=== PATIENT | female | born 1975 | race Two or more races ===

== ENCOUNTER 2025-04-28 07:09 | Inpatient (IN) | payer BC, OTHER ==
[~2025-04-28] VITALS: Ht 180.3 cm; Wt 65.9 kg
--- NOTE | 2025-04-28 07:27 | ECG ---
[facility] Test Date: 2025-04-28 Test Time: 07:21:14 Pat Name: RENATA VARGAS Department: [facility] ED Patient ID: [id number] Room: 0288 Gender: F Hide Spreader: JASMINE : 1975 Requested By: KARYN OLIVARES Order Number: [id number] Reading MD: Nicolas Ashley Measurements Intervals Nicholson Rate: 65 P: 33 AL: 130 QRS: 21 QRSD: 90 T: 32 QT: 417 QTc: 434 Interpretive Statements Sinus rhythm Low voltage, extremity leads Electronically Signed On 05-01-2025 20:30:12 PDT by Nicolas Ashley Please click the below link to view image of tracing.
--- NOTE | 2025-04-28 07:32 | ED.PDOC ---
GI ASSESSMENT HPI Comments This is a 50 year old female MARY presenting to the ED with chief complaint of abdominal pain. Patient reports that she has been experiencing upper abdominal pain with associated difficulty urinating for the past month. Patient relays that she has had multiple episodes of burning abdominal pain and she is currently placed on antibiotics from an urgent care for possible kidney infection as she was told her kidneys were having issues. Patient denies any N/V/D, fever, chills, dysuria, hematuria, or flank pain. Time Seen by MD: 07:29 Reviewed Notes: Nurses Notes, Accounting Professional Notes, Medications, Allergies Allergies: Coded Allergies: Ciprofloxacin (Verified Allergy, Unknown, 04/28/25) Codeine (Verified Allergy, Unknown, 04/28/25) Information Source: Patient, Emergency Med Personnel Mode of Arrival: EMS Timing: Days Duration: Since onset Prehospital treatment: None Quality: Aching Vomitus: None Stool: Normal Severity: Moderate Recent: None Recent Hx of: None Pain Location: Epigastric Modifying Factors: Nothing Associated sign and symptoms: Abdominal Pain Past Medical History PAST MEDICAL HISTORY: Denies Surgical History: Denies all surgeries REALTIME REPORTER History: No Pertinent REALTIME REPORTER History Family History Family History: Reviewed,noncontributory to illness Social History Smoker: Non-Smoker Alcohol: Denies ETOH Use Drugs: Denies Drug Use Lives In: Home Constitutional: denies: chills, diaphoresis, fatigue, fever, malaise, sweats, weakness, others EENTM: denies: blurred vision, double vision, ear bleeding, ear discharge, ear drainage, ear pain, ear ringing, eye pain, eye redness, hearing loss, mouth pain, mouth swelling, nasal discharge, nose bleeding, nose congestion, nose pain, photophobia, tearing, throat pain, throat swelling, voice changes, others Respiratory: denies: cough, hemoptysis, orthopnea, SOB at rest, shortness of breath, SOB with excertion, stridor, wheezing, others Cardiovascular: denies: chest pain, dizzy spells, diaphoresis, Dyspnea on exertion, edema, irregular heart beat, left arm pain, lightheadedness, palpitations, PND, syncope, others Gastrointestinal: reports: abdominal pain; denies: abdomen distended, blood streaked bowels, constipated, diarrhea, dysphagia, difficulty swallowing, hematemesis, melena, nausea, poor appetite, poor fluid intake, rectal bleeding, rectal pain, vomiting, others Genitourinary: reports: others (Difficulty urinating); denies: abnormal vagina bleeding, burning, dyspareunia, dysuria, flank pain, frequency, hematuria, incontinence, pain, , vagina discharge, urgency Neurological: denies: dizziness, fainting, headache, left sided numbness, left sided weakness, numbness, paresthesia, pre-existing deficit, right sided numbness, right sided weakness, seizure, speech problems, tingling, tremors, weakness, others Musculoskeletal: denies: back pain, gout, joint pain, joint swelling, muscle pain, muscle stiffness, neck pain, others Integumetry: denies: bruises, change in color, change in hair/nails, dryness, laceration, lesions, lumps, rash, wounds, others Allergic/Immunocompromised: denies: Difficulty Healing, Frequent Infections, Hives, Itching, others Hematologic/Lymphatic: denies: anemia, blood clots, easy bleeding, easy bruising, swollen glands, others Endocrine: denies: excessive hunger, excessive sweating, excessive thirst, excessive urination, flushing, intolerance to cold, intolerance to heat, unexplained weight gain, unexplained weight loss, others Psychiatric: denies: anxiety, bipolar disorder, depression, hopeless, panic disorder, schizophrenia, sleepless, suicidal, others All Other Systems: Reviewed and Negative Physical Exam General Appearance: No Apparent Distress, Normal HEENT: Normal ENT Inspection, Pharynx Normal, TMs Normal Neck: Full Range of Motion, Non-Tender, Normal, Normal Inspection Respiratory: Chest Non-Tender, Lungs Clear, No Accessory Muscle Use, No Respiratory Distress, Normal Breath Sounds Cardiovascular: No Edema, No JVD, No Murmur, No Gallop, Normal Peripheral Pulses, Regular Rate/Rhythm Breast Exam: Deferred Gastrointestinal: No Organomegaly, No Pulsatile Mass, Normal Bowel Sounds, Soft, Tenderness (Diffuse abdominal tenderness) Genitalia: Deferred Pelvic: Deferred Rectal: Deferred Extremities: No calf tenderness, Normal capillary refill, Normal inspection, Normal range of motion, Non-tender, No pedal edema Musculoskeletal : Apperance: Normal Neurologic: Alert, jewelry estimator II-XII nml as Tested, No Motor Deficits, Normal Affect, Normal Mood, No Sensory Deficits Cerebellar Function: Normal Reflexes: Normal Skin: Dry, Normal Color, Warm Lymphatic: No Adenopathy Was a procedure done? Was a procedure done?: No GI differential Dx Differential Diagnosis: Gastroenteritis, GI hemorrhage, UTI, Dehydration X-Ray, Labs, Meds, VS Vital Signs Date Time Temp Pulse Resp B/P (MAP) Pulse Ox O2 Delivery O2 Flow Rate FiO2 04/28/25 08:30 50 15 108/59 04/28/25 08:00 57 16 104/64 04/28/25 07:33 98.8 57 16 104/64 (77) 97 98.8 04/28/25 07:21 65 04/28/25 07:17 98.4 59 18 109/69 98 98.4 Lab Test 04/28/25 09:30 04/28/25 07:56 Range/Units Urine Color Colorless Yellow Urine Clarity Turbid H Clear Urine pH 7.5 5.0-9.0 Urine Specific [place] 1.016 1.001-1.035 Urine Protein Normal Negative Urine Ketones Negative Negative Urine Blood Normal Negative /uL Urine Nitrite Negative Negative Urine Bilirubin Negative Negative Urine Urobilinogen Normal Negative mg/dL Urine Leukocyte Esterase 3+ Negative /uL Urine Glucose Normal Normal mg/dL White Blood Count 3.7 L 4.4-10.8 10^3/uL Red Blood Count 3.80 L 4.0-5.20 10^6/uL Hemoglobin 12.2 12.2-16.2 g/dL Hematocrit 35.9 L 36.0-46.0 % Mean Corpuscular Volume 94.7 80.0-100.0 fL Mean Corpuscular Hemoglobin 32.2 H 28.0-32.0 pg Mean Corpuscular Hemoglobin Concent 34.0 32.0-36.0 g/dL Red Cell Distribution Width 12.7 11.8-14.3 % Platelet Count 148 140-450 10^3/uL Mean Platelet Volume 8.1 6.9-10.8 fL Neutrophils (%) (Auto) 61.2 37.0-80.0 % Lymphocytes (%) (Auto) 27.9 10.0-50.0 % Monocytes (%) (Auto) 9.3 0.0-12.0 % Eosinophils (%) (Auto) 1.1 0.0-7.0 % Basophils (%) (Auto) 0.5 0.0-2.0 % Neutrophils # (Auto) 2.3 1.6-8.6 10 ^3/uL Lymphocytes # (Auto) 1.0 0.4-5.4 10 ^3/uL Monocytes # (Auto) 0.3 0-1.3 10 ^3/uL Eosinophils # (Auto) 0 0-0.8 10 ^3/uL Basophils # (Auto) 0 0-0.2 10 ^3/uL Nucleated Red Blood Cells 0.0 % Sodium Level 145 136-145 mmol/L Potassium Level 4.3 3.5-5.1 mmol/L Chloride Level 109 H 98-107 mmol/L Carbon Dioxide Level 28 20-31 mmol/L Anion Gap 8 5-15 Blood Urea Nitrogen 13 9-23 mg/dL Creatinine 0.39 L 0.550-1.02 mg/dL Glomerular Filtration Rate Calc 120 >90 mL/min BUN/Creatinine Ratio 33.3 H 10.0-20.0 Serum Glucose 86 74-106 mg/dL Lactic Acid Level 0.8 0.4-2.0 mmol/L Calcium Level 8.6 L 8.7-10.4 mg/dL Total Bilirubin 0.5 0.2-1.0 mg/dL Aspartate Amino Transferase (AST) 12 L 13-40 U/L Alanine Aminotransferase (ALT) < 9 7-40 U/L Alkaline Phosphatase 39 L 46-116 U/L Total Protein 6.3 5.7-8.2 g/dL Albumin 3.8 3.2-4.8 g/dL Current Medications Medications (Trade) Dose Ordered Sig/Moisés Route Start Time Stop Time Status Last Admin Sodium Chloride 1,000 ml @ 1,000 mls/hr Q1H ONCE IV 04/28/25 07:30 04/28/25 08:29 DC 04/28/25 08:01 Ondansetron HCl (Zofran) 4 mg ONCE ONCE IV 04/28/25 07:30 04/28/25 07:33 DC 04/28/25 07:59 Morphine Sulfate 4 mg ONCE ONCE IV 04/28/25 07:30 04/28/25 07:33 DC 04/28/25 08:00 [facility] [id number] [place] [id number] Ph: [phone] DIAGNOSTIC IMAGING Diagnostic Imaging Report : [id number] Signed PATIENT: RENATA VARGAS ACCT: [id number] UNIT: [id number] : 1975 LOC: ER ROOM / BED: / AGE / SEX: 50 / F ADM STATUS: REG ER SERVICE 7 ORDERING PHYSICIAN: KARYN PINON MD PROCEDURE(s): CXRP - CHEST PORTABLE REASON: abdominal pain ORDER NUMBER(s): [id number], ACCESSION NUMBER(s): [id number] CHEST RADIOGRAPH Indication: abdominal pain Technique: Single frontal view of the chest was obtained COMPARISON: None FINDINGS: Lines and Tubes: None Lungs: Clear Pleura: No effusion. No pneumothorax. Cardiomediastinal contours: Unremarkable Bones: Unremarkable IMPRESSION: No acute disease. ATED BY: FILIBERTO DIXON MD DICTATED DATE/TIME: 04/28/25831 SIGNED BY: FILIBERTO DIXON MD SIGNED DATE/TIME: 04/28/25831 CC: Images Reviewed?: Images reviewed and evaluated by me Time of 1ST Reevaluation: 08:28 Reevaluation 1ST: Unchanged Patient Education/Counseling: Diagnosis, Treatment Family Education/Counseling: No Family Present SEPSIS Sepsis Screen Physician Orders Chest Portable (04/28/25 07:28) Blood Culture (04/28/25 07:28) Urine Bacterial Culture (04/28/25 07:28) Ct Ab Pel With Iv Con Only (04/28/25 08:51) Vital Signs Date Time Temp Pulse Resp B/P (MAP) Pulse Ox O2 Delivery O2 Flow Rate FiO2 04/28/25 08:30 50 15 108/59 04/28/25 08:00 57 16 104/64 04/28/25 07:33 98.8 57 16 104/64 (77) 97 98.8 04/28/25 07:21 65 04/28/25 07:17 98.4 59 18 109/69 98 98.4 Laboratory Tests Test 04/28/25 07:56 Lactic Acid Level 0.8 mmol/L (0.4-2.0) White Blood Count 3.7 10^3/uL (4.4-10.8) L Medications Medications Dose Ordered Sig/Moisés Route Start Time Stop Time Status Last Admin Dose Admin Morphine Sulfate 4 mg ONCE ONCE IV 04/28/25 07:30 04/28/25 07:33 DC 04/28/25 08:00 Ondansetron HCl 4 mg ONCE ONCE IV 04/28/25 07:30 04/28/25 07:33 DC 04/28/25 07:59 Sodium Chloride 1,000 ml @ 1,000 mls/hr Q1H ONCE IV 04/28/25 07:30 04/28/25 08:29 DC 04/28/25 08:01 Departure 1 Departure Time of Disposition: 10:16 (Patient presented with abdominal pain that was concerning for possible appendicits, gastritis, cholecystitis, colitis, gastroenteritis, sbo, or orther possible surgical emergency. Data: 1. I ordered and reviewed the result of at least 3 labs including a CBC, BMP, and Urinalysis. 2. I independently interpreted the following tests: CT Abdomen and Pelvis is concerning for benign abdomen .Risk:This patient has a high risk of morbidity due to further diagnostic testing or treatment and may suffer from an acute abdominal process disorder. Workup reveals intractable abdominal pain and patient should be admitted for further workup. and possible expert consultation. ) Impression: Primary Impression: Intractable abdominal pain Additional Impression: Generalized weakness Disposition: ADMITTED INPATIENT Admit to: Med Surg Condition: Serious Critical Care Note Critical Care Time?: Yes Critical care comment: Intractable abdominal pain Authorized and Performed by: Karyn Pinon MD Total critical care time: Approximately 41 minutes Due to a high probability of clinically significant, life threatening deterioration, the patient required my highest level of preparedness to int ervene emergently and I personally spent this critical care time directly and personally managing the patient. This critical care time included obtaining a history; examining the patient; pulse oximetry; ordering and review of studies; arranging urgent treatment with development of a management plan; evaluation of patient's response to treatment; frequent reassessment; and, discussions with other providers. This critical care time was performed to assess and manage the high probability of imminent, life-threatening deterioration that could result in multi-organ failure. It was exclusive of separately billable procedures and treating other patients and teaching time. Please see my other sections and the rest of the note for further information on patient assessment and treatment. Stability Stability form required: No Heart Score Heart Score: Heart Score Response (Comments) Value History N/A 0 EKG N/A 0 Age N/A 0 Risk Factors N/A 0 Troponin N/A 0 Total 0 I personally scribed for KARYN PINON MD ([email or web address]) on 04/28/25 at 07:32. E lectronically submitted by [place] Fenton ([email or web address]). I personally scribed for KARYN PINON MD ([email or web address]) on 04/28/25 at 07:44. E lectronically submitted by [place] Fenton ([email or web address]). I personally scribed for KARYN PINON MD ([email or web address]) on 04/28/25 at 09:26. E lectronically submitted by [place] Fenton ([email or web address]). KARYN PINON MD Apr 28, 2025 07:32
[2025-04-28 07:33] VITALS: PULSE 57; RESP 16; O2SAT 97
[2025-04-28] MEDS: ONDANSETRON HCL 4 MG/2 ML VIAL IV ONE ×2 (07:59→13:01)
[2025-04-28] MEDS: MORPHINE SULFATE 4 MG/ML SYR/VIAL IV ONE ×2 (08:00→13:01)
[2025-04-28] MEDS: SODIUM CHLORIDE 0.9% 1,000 ML IV ONE ×3 (08:01→15:11)
[2025-04-28 08:10] LABS: Hematocrit 35.9 % (36.0-46.0); Hemoglobin 12.2 g/dL (12.2-16.2); Mean Corpuscular Hemoglobin 32.2 pg (28.0-32.0); Mean Corpuscular Volume 94.7 fL (80.0-100.0); Nucleated Red Blood Cells % 0.0 %
[2025-04-28 08:26] LABS: Anion Gap 8 (5-15); BUN/Creatinine Ratio 33.3 (10.0-20.0); Blood Urea Nitrogen 13 mg/dL (9-23); Carbon Dioxide 28 mmol/L (20-31); Glucose 86 mg/dL (74-106); Potassium 4.3 mmol/L (3.5-5.1); Sodium 145 mmol/L (136-145); Total Protein 6.3 g/dL (5.7-8.2)
[2025-04-28 08:27] LABS: Albumin 3.8 g/dL (3.2-4.8); Bilirubin, Total 0.5 mg/dL (0.2-1.0)
[2025-04-28 08:30] LABS: Alanine Aminotransferase < 9 U/L (7-40); Alkaline Phosphatase 39 U/L (46-116); Calcium 8.6 mg/dL (8.7-10.4); Chloride 109 mmol/L (98-107)
--- NOTE | 2025-04-28 08:35 | DVH ---
CHEST RADIOGRAPH Indication: abdominal pain Technique: Single frontal view of the chest was obtained COMPARISON: None FINDINGS: Lines and Tubes: None Lungs: Clear Pleura: No effusion. No pneumothorax. Cardiomediastinal contours: Unremarkable Bones: Unremarkable IMPRESSION: No acute disease.
--- NOTE | 2025-04-28 09:34 | DVH ---
Indication: abdominal pain Comparison: None Technique: Helical axial scans were performed through the abdomen and pelvis after administration of 100 mL of omnipaque 300 intravenously. Subsequently, coronal and sagittal reformations were obtained . Dose lowering techniques have been used including automated exposure control and adjustment of mA and /or kv according to patient size. FINDINGS: LUNG BASES: Clear LIVER: Normal SPLEEN: Normal GALLBLADDER: Normal PANCREAS: Normal ADRENAL GLANDS: Normal KIDNEYS: Normal GI: No bowel dilation or wall thickening. Appendix normal where visualized. LYMPH NODES: Normal VASCULAR STRUCTURES: Normal BLADDER: Normal PELVIC ORGAN: IUD present. FREE AIR OR FREE FLUID: None OSSEOUS STRUCTURES: Normal SOFT TISSUES: Normal DLP is 434.5 mGy-cm. CTDI vol is 7.4 mGy. IMPRESSION: 1. No acute abnormality in the abdomen or pelvis.
[2025-04-28 09:54] LABS: Urine Protein, UAD Normal (Negative)
--- NOTE | 2025-04-28 11:36 | DVHHP2 ---
History of Present Illness Reason for Visit: right flank pain History of Present Illness Junior Denis is a 50-year-old female with past medical history of DVT and PE, who came to the hospital for right flank pain. Patient states she has had intermittent flank pain for 1 month. She went to urgent care a little over 2 weeks ago and was told she had a UTI and was prescribed Bactrim. Her symptoms persisted so she went back to urgent care on Saturday04/23/2025 and was prescribed Cefpodoxime. She came to the hospital today because the right flank pain has worsened, become constant and now radiates to her right lower quadrant and pelvic area. Pulmonary: Pulmonary embolus (2019 following a knee surgery) Past Surgical History: Other (right and left knee surgeries) Smoke: No ALCOHOL: none Drugs: None Lives: with Family Domestic Violence: Neg Review of Systems Constitutional: No: Fever, Chills, Sweats, Weakness, Malaise, Other Eyes: No: Pain, Vision change, Conjunctivae inflammation, Eyelid inflammation, Other, Redness ENT: No: Ear pain, Ear discharge, Nose pain, Nose discharge, Nose congestion, Mouth pain, Mouth swelling, Throat pain, Throat swelling, Other Respiratory: No: Cough, Dry, Shortness of breath, SOB with excertion, Wheezing, Hemoptysis, Pleuritic Pain, Sputum, Wheezing, Other Cardiovascular: No: Chest Pain, Palpitations, Orthopnea, Paroxysmal Noc. Dyspnea, Edema, Lt Headedness, Other Gastrointestinal: Nausea, Abdominal Pain (RLQ and pelvic pain); No: Vomiting, Diarrhea, Constipation, Melena, Hematochezia, Other Genitourinary: Dysuria, Frequency; No Incontinence, No Hematuria, No Retention, No Other Musculoskeletal: back pain (right flank); No: other, neck pain, shoulder pain, arm pain, hand pain, leg pain, foot pain Skin: No: Rash, Lesions, Jaundice, Bruising, Other Neurological: No: Weakness, Numbness, Incoordination, Change in speech, Confusion, Seizures, Other Allergies: Coded Allergies: Ciprofloxacin (Verified Allergy, Unknown, 04/28/25) Codeine (Verified Allergy, Unknown, 04/28/25) Exam Vital Signs Vital Signs Date Time Temp Pulse Resp B/P (MAP) Pulse Ox O2 Delivery O2 Flow Rate FiO2 04/28/25 09:41 56 19 108/59 (75) 97 04/28/25 07:33 98.8 98.8 04/28/25 07:33 Room Air* 0 21 General Appearance: Alert, Oriented X3, Cooperative, mild distress HEENT: Atraumatic, PERRLA Respiratory: Clear to auscultation, Normal air movement Cardiovascular: Normal S1, Normal S2, Other (SB) Abdominal: Normal bowel sounds, Soft, Other (RLQ adn pelvic tenderness) Extremities: No clubbing, No edema, Normal pulses Skin: No rashes, No breakdown, No significant lesion Neuro: Normal gait, Normal speech, Strength at 5/5 X4 ext Psych/Mental Status: Mental status NL, Mood NL Labs/Xrays Labs Test 04/28/25 09:30 04/28/25 07:56 Range/Units Urine Color Colorless Yellow Urine Clarity Turbid H Clear Urine pH 7.5 5.0-9.[address] 1.016 1.001-1.035 Urine Protein Normal Negative Urine Ketones Negative Negative Urine Blood Normal Negative /uL Urine Nitrite Negative Negative Urine Bilirubin Negative Negative Urine Urobilinogen Normal Negative mg/dL Urine Leukocyte Esterase 3+ Negative /uL Urine Glucose Normal Normal mg/dL White Blood Count 3.7 L 4.4-10.8 10^3/uL Red Blood Count 3.80 L 4.0-5.20 10^6/uL Hemoglobin 12.2 12.2-16.2 g/dL Hematocrit 35.9 L 36.0-46.0 % Mean Corpuscular Volume 94.7 80.0-100.0 fL Mean Corpuscular Hemoglobin 32.2 H 28.0-32.0 pg Mean Corpuscular Hemoglobin Concent 34.0 32.0-36.0 g/dL Red Cell Distribution Width 12.7 11.8-14.3 % Platelet Count 148 140-450 10^3/uL Mean Platelet Volume 8.1 6.9-10.8 fL Neutrophils (%) (Auto) 61.2 37.0-80.0 % Lymphocytes (%) (Auto) 27.9 10.0-50.0 % Monocytes (%) (Auto) 9.3 0.0-12.0 % Eosinophils (%) (Auto) 1.1 0.0-7.0 % Basophils (%) (Auto) 0.5 0.0-2.0 % Neutrophils # (Auto) 2.3 1.6-8.6 10 ^3/uL Lymphocytes # (Auto) 1.0 0.4-5.4 10 ^3/uL Monocytes # (Auto) 0.3 0-1.3 10 ^3/uL Eosinophils # (Auto) 0 0-0.8 10 ^3/uL Basophils # (Auto) 0 0-0.2 10 ^3/uL Nucleated Red Blood Cells 0.0 % Sodium Level 145 136-145 mmol/L Potassium Level 4.3 3.5-5.1 mmol/L Chloride Level 109 H 98-107 mmol/L Carbon Dioxide Level 28 20-31 mmol/L Anion Gap 8 5-15 Blood Urea Nitrogen 13 9-23 mg/dL Creatinine 0.39 L 0.550-1.02 mg/dL Glomerular Filtration Rate Calc 120 >90 mL/min BUN/Creatinine Ratio 33.3 H 10.0-20.0 Serum Glucose 86 74-106 mg/dL Lactic Acid Level 0.8 0.4-2.0 mmol/L Calcium Level 8.6 L 8.7-10.4 mg/dL Total Bilirubin 0.5 0.2-1.0 mg/dL Aspartate Amino Transferase (AST) 12 L 13-40 U/L Alanine Aminotransferase (ALT) < 9 7-40 U/L Alkaline Phosphatase 39 L 46-116 U/L Total Protein 6.3 5.7-8.2 g/dL Albumin 3.8 3.2-4.8 g/dL CHEST RADIOGRAPH FINDINGS: Lines and Tubes: None Lungs: Clear Pleura: No effusion. No pneumothorax. Cardiomediastinal contours: Unremarkable Bones: Unremarkable IMPRESSION: No acute disease. Technique: Helical axial scans were performed through the abdomen and pelvis after administration of 100 mL of omnipaque 300 intravenously. FINDINGS: LUNG BASES: Clear LIVER: Normal SPLEEN: Normal GALLBLADDER: Normal PANCREAS: Normal ADRENAL GLANDS: Normal KIDNEYS: Normal GI: No bowel dilation or wall thickening. Appendix normal where visualized. LYMPH NODES: Normal VASCULAR STRUCTURES: Normal BLADDER: Normal PELVIC ORGAN: IUD present. FREE AIR OR FREE FLUID: None OSSEOUS STRUCTURES: Normal SOFT TISSUES: Normal DLP is 434.5 mGy-cm. CTDI vol is 7.4 mGy. IMPRESSION: 1. No acute abnormality in the abdomen or pelvis. SEPSIS Sepsis Screen Date sepsis recognized/suspect: Apr 28, 2025 Time Sepsis recognized/suspect: 0733 Recent Procedure: No On Antibiotic Therapy: No Respiratory Rate >20: No Heart Rate >90: No Temp<36 C (96.8 F) or >38.3 C: No SBP <90 or MAP <65 mmHG: No New Acute Mental Status Change: No Is the patient on CPAP, BIPAP,: No Physician Orders Chest Portable (04/28/25 07:28) Blood Culture (04/28/25 07:28) Urine Bacterial Culture (04/28/25 07:28) Ct Ab Pel With Iv Con Only (04/28/25 08:51) Admit (04/28/25 11:19) Code Status (04/28/25 11:19) Hydrocodone-Acet 5/325mg Tab ([place] 32 (04/28/25 11:30) Ondansetron Hcl (Zofran) (04/28/25 11:30) Docusate Sodium Capsule (Colace Capsule) (04/28/25 11:30) Enoxaparin Sodium (Lovenox) (04/29/25 10:00) Complete Blood Count (04/29/25 04:00) Comprehensive Metabolic Panel (04/29/25 04:00) Condition: Serious (04/28/25 11:19) Acetaminophen Tablet (Tylenol Tablet) (04/28/25 11:30) Morphine Sulfate Injection (04/28/25 11:30) NS (04/28/25 11:30) NS (04/28/25 11:30) Meropenem 1gm Q8h(Gfr>50) (04/28/25 14:00) Vital Signs Date Time Temp Pulse Resp B/P (MAP) Pulse Ox O2 Delivery O2 Flow Rate FiO2 04/28/25 09:41 56 19 108/59 (75) 97 04/28/25 08:30 50 15 108/59 04/28/25 08:00 57 16 104/64 04/28/25 07:33 98.8 57 16 104/64 (77) 97 98.8 04/28/25 07:33 57 16 97 Room Air* 0 21 04/28/25 07:21 65 04/28/25 07:17 98.4 59 18 109/69 98 98.4 Laboratory Tests Test 04/28/25 07:56 Lactic Acid Level 0.8 mmol/L (0.4-2.0) White Blood Count 3.7 10^3/uL (4.4-10.8) L Medications Medications Dose Ordered Sig/Moisés Route Start Time Stop Time Status Last Admin Dose Admin Morphine Sulfate 4 mg ONCE ONCE IV 04/28/25 07:30 04/28/25 07:33 DC 04/28/25 08:00 4 MG Ondansetron HCl 4 mg ONCE ONCE IV 04/28/25 07:30 04/28/25 07:33 DC 04/28/25 07:59 4 MG Sodium Chloride 1,000 ml @ 1,000 mls/hr Q1H ONCE IV 04/28/25 07:30 04/28/25 08:29 DC 04/28/25 08:01 1,000 MLS/HR Assessment/Plan Assessment/Plan Assessment: Pyelonephritis, Complicated UTI, Dehydration, Plan: Admit to Med-Surg, IV antibiotics, IV hydration, Urine culture, Lovenox daily, Plan discussed with: Patient My Orders Orders - LISBETH CLEMENTS Procedure Category Date Status Time Admit ADMIT 04/28/25 Transmitted 11:19 Code Status CODE 04/28/25 Transmitted 11:19 Hydrocodone-Acet PHA 04/28/25 Transmitted 5/325mg Tab ([place] 11:30 Ondansetron Hcl PHA 04/28/25 Transmitted (Zofran) 11:30 Docusate Sodium PHA 04/28/25 Transmitted Capsule (Colace 11:30 Enoxaparin Sodium PHA 04/29/25 Transmitted (Lovenox) 10:00 Complete Blood Count LAB 04/29/25 Verified 04:00 Comprehensive LAB 04/29/25 Verified Metabolic Panel 04:00 Condition: Serious RAMÓN 04/28/25 Transmitted 11:19 Acetaminophen Tablet PHA 04/28/25 Transmitted (Tylenol Tablet) 11:30 Morphine Sulfate PHA 04/28/25 Transmitted Injection 11:30 NS PHA 04/28/25 Transmitted 11:30 NS PHA 04/28/25 Transmitted 11:30 Meropenem 1gm PHA 04/28/25 Transmitted Q8h(Gfr>50) 14:00 Date of Service: Apr 28, 2025 Billing Provider: LISBETH CLEMENTS Common Visit Codes: [id number] INP/OBS CARE (MOD) LISBETH CLEMENTS ASSISTANT DIRECTOR OF PLANT OPERATIONS Apr 28, 2025 11:36
[2025-04-28 13:30] VITALS: BP 118/74; PULSE 56; RESP 20; O2SAT 95
[2025-04-28] MEDS: MEROPENEM 1GM IVPB 50 ML IV ONE (15:11)
[2025-04-28] MEDS: HYDROcodone-ACET 5/325MG TAB PO PRN (15:20)
[2025-04-28 21:00] VITALS: BP 119/76; PULSE 56; RESP 17; TEMP 97.2; O2SAT 96
[2025-04-28] MEDS: MEROPENEM 1GM IVPB 50 ML IV SCH (21:52)
[2025-04-29] MEDS: ACETAMINOPHEN 325 MG TAB PO PRN (00:46)
[2025-04-29 01:00] VITALS: BP 107/66; PULSE 53; RESP 17; TEMP 98.5; O2SAT 97
[2025-04-29 05:00] VITALS: BP 100/56; PULSE 51; RESP 18; TEMP 98; O2SAT 95
[2025-04-29 06:41] LABS: Hematocrit 35.8 % (36.0-46.0); Hemoglobin 12.2 g/dL (12.2-16.2); Mean Corpuscular Hemoglobin 32.6 pg (28.0-32.0); Mean Corpuscular Volume 95.3 fL (80.0-100.0); Nucleated Red Blood Cells % 0.2 %
[2025-04-29 07:02] LABS: Alanine Aminotransferase 20 U/L (7-40); Albumin 3.5 g/dL (3.2-4.8); Anion Gap 7 (5-15); BUN/Creatinine Ratio 13.9 (10.0-20.0); Blood Urea Nitrogen 10 mg/dL (9-23); Calcium 8.8 mg/dL (8.7-10.4); Carbon Dioxide 30 mmol/L (20-31); Chloride 106 mmol/L (98-107); Glucose 82 mg/dL (74-106); Potassium 4.5 mmol/L (3.5-5.1); Sodium 143 mmol/L (136-145); Total Protein 5.8 g/dL (5.7-8.2)
[2025-04-29 07:03] LABS: Alkaline Phosphatase 38 U/L (46-116); Bilirubin, Total 0.4 mg/dL (0.2-1.0)
[2025-04-29] MEDS: IOHEXOL 300 MG/ML 100ML BOTTLE IJ ONE (08:48)
[2025-04-29] MEDS: ENOXAPARIN SOD 40 MG/0.4 ML SYRINGE SC SCH (08:48)
[2025-04-29 09:38] VITALS: BP_SYST 115; BP_SYST 149; BP_DIAS 61; BP_DIAS 68; PULSE 50; PULSE 62; RESP 16; RESP 20; TEMP 97.6; TEMP 97.7; O2SAT 100; O2SAT 98
[2025-04-29] MEDS ORDERED: ENOXAPARIN SOD 40 MG/0.4 ML SYRINGE SC SCH (10:00)
[2025-04-29] MEDS: MORPHINE SULFATE 4 MG/ML SYR/VIAL IV PRN (10:40)
[2025-04-29 13:00] VITALS: BP 113/78; PULSE 61; TEMP 98; O2SAT 97
--- NOTE | 2025-04-29 15:19 | DVHPN2 ---
Reviewed: Care Plan, H&P, Labs, Medications, Previous Orders Changes from previous H/P or p: No Changes General: Per HPI Eyes: No Pain, No Vision change, No Conjunctivae inflammation, No Eyelid inflammation, No Other, No Redness ENT: No Ear pain, No Ear discharge, No Nose pain, No Nose discharge, No Nose congestion, No Mouth pain, No Mouth swelling, No Throat pain, No Throat swelling, No Other Cardiovascular: No Chest Pain, No Palpitations, No Orthopnea, No Paroxysmal Noc. Dyspnea, No Edema, No Lt Headedness, No Other Respiratory: No Cough, No Dry, No Shortness of breath, No SOB with excertion, No Wheezing, No Hemoptysis, No Pleuritic Pain, No Sputum, No Other Gastrointestinal: Nausea; No Vomiting; Abdominal Pain (RLQ and pelvic pain); No Diarrhea, No Constipation, No Melena, No Hematochezia, No Other Genitourinary: Dysuria, Frequency; No Incontinence, No Hematuria, No Retention, No Other Musculoskeletal: No other, No neck pain, No shoulder pain, No arm pain; back pain (right flank); No hand pain, No leg pain, No foot pain Skin: No Rash, No Lesions, No Jaundice, No Bruising, No Other Objective Vitals Vital Signs Date Time Temp Pulse Resp B/P (MAP) Pulse Ox O2 Delivery O2 Flow Rate FiO2 04/29/25 13:00 98.0 61 113/78 (90) 97 98.0 04/29/25 11:35 16 04/28/25 16:49 Room Air* 0 21 Intake/Output Intake and Output 04/29/25 07:00 Intake Total 1400 ml Balance 1400 ml Intake Oral 400 ml IV Total 1000 ml # Voids 1 General Appearance: Alert, Oriented X3, Cooperative Cardiovascular: Normal S1 Medications Current Medications Medications Dose Ordered Sig/Moisés Route Start Time Stop Time Status Last Admin Dose Admin Acetaminophen/ Hydrocodone Bitart 1 tab Q4HP PRN PO 04/28/25 11:30 04/28/25 22:03 1 TAB Ondansetron HCl 4 mg Q4HP PRN IV 04/28/25 11:30 Docusate Sodium 100 mg BIDPRN PRN PO 04/28/25 11:30 Enoxaparin Sodium 40 mg DAILY SC 04/29/25 10:00 04/29/25 08:48 40 MG Acetaminophen 650 mg Q6HP PRN PO 04/28/25 11:30 04/29/25 00:46 650 MG Morphine Sulfate 2 mg Q4HPRN PRN IV 04/28/25 11:45 04/29/25 10:40 2 MG Meropenem 50 ml @ 17 mls/hr Q8HR IV 04/28/25 22:00 04/29/25 12:46 17 MLS/HR Laboratory Results Laboratory Tests 04/29/25 05:45 Chemistry Test 04/29/25 05:45 Albumin 3.5 g/dL (3.2-4.8) Calcium Level 8.8 mg/dL (8.7-10.4) Total Protein 5.8 g/dL (5.7-8.2) LFT Test 04/29/25 05:45 Alanine Aminotransferase (ALT) 20 U/L (7-40) Alkaline Phosphatase 38 U/L (46-116) L Aspartate Amino Transferase (AST) 19 U/L (13-40) Total Bilirubin 0.4 mg/dL (0.2-1.0) Urinalysis Test 04/28/25 09:30 Urine Color Colorless (Yellow) Urine Clarity Turbid (Clear) H Urine pH 7.5 (5.0-9.0) Urine Specific [place] 1.016 (1.001-1.035) Urine Protein Normal (Negative) Urine Ketones Negative (Negative) Urine Blood Normal /uL (Negative) Urine Nitrite Negative (Negative) Urine Bilirubin Negative (Negative) Urine Urobilinogen Normal mg/dL (Negative) Urine Leukocyte Esterase 3+ /uL (Negative) Urine Glucose Normal mg/dL (Normal) Microbiology Microbiology Date/Time Source Procedure Growth Status 04/28/25 09:30 Voided Urine Urine Culture - Preliminary Resulted 04/28/25 07:55 Blood Blood Culture - Preliminary NO GROWTH AFTER 24 HOURS OF INCUBATION. Resulted Labs and/or images reviewed: Labs reviewed by me, Image(s) reviewed by me Assessment/Plan Assessment/Plan Pyelonephritis, Complicated UTI, Dehydration, improving, mildly continue with IV abx Plan discussed with: Patient Date of Service: Apr 29, 2025 Billing Provider: LAVERN CRAWFORD DO Common Visit Codes: [id number] INP/OBS CARE(HIGH) LAVERN CRAWFORD DO Apr 29, 2025 15:19
[2025-04-29 16:58] VITALS: BP 122/85; PULSE 62; RESP 16; TEMP 97.8; O2SAT 99
[2025-04-29 21:00] VITALS: BP 112/71; PULSE 58; RESP 16; TEMP 97.8; O2SAT 94
[2025-04-29] MEDS ORDERED: HYDROmorphone HCL 2 MG/ML VL/or syr IV PRN (22:00)
[2025-04-30 01:00] VITALS: BP 90/58; PULSE 52; RESP 16; TEMP 98; O2SAT 100
[2025-04-30 05:00] VITALS: BP 112/72; PULSE 58; RESP 16; TEMP 97.1; O2SAT 97
[2025-04-30] MEDS: ONDANSETRON HCL 4 MG/2 ML VIAL IV PRN (05:30)
[2025-04-30] MEDS: DOCUSATE SOD 100 MG CAP PO PRN (05:42)
[2025-04-30 09:00] VITALS: BP_SYST 105; BP_SYST 121; BP_DIAS 46; BP_DIAS 78; PULSE 51; PULSE 70; RESP 20; TEMP 98.1; TEMP 98.5; O2SAT 90; O2SAT 95
[2025-04-30 13:00] VITALS: BP 103/66; PULSE 60; RESP 20; TEMP 98.4; O2SAT 94
--- NOTE | 2025-04-30 14:05 | DVHPN2 ---
Reviewed: Care Plan, H&P, Labs, Medications, Previous Orders Changes from previous H/P or p: No Changes General: Per HPI Eyes: No Pain, No Vision change, No Conjunctivae inflammation, No Eyelid inflammation, No Other, No Redness ENT: No Ear pain, No Ear discharge, No Nose pain, No Nose discharge, No Nose congestion, No Mouth pain, No Mouth swelling, No Throat pain, No Throat swelling, No Other Cardiovascular: No Chest Pain, No Palpitations, No Orthopnea, No Paroxysmal Noc. Dyspnea, No Edema, No Lt Headedness, No Other Respiratory: No Cough, No Dry, No Shortness of breath, No SOB with excertion, No Wheezing, No Hemoptysis, No Pleuritic Pain, No Sputum, No Other Gastrointestinal: Nausea, Abdominal Pain Genitourinary: Dysuria, Frequency Musculoskeletal: back pain Skin: No Rash, No Lesions, No Jaundice, No Bruising, No Other Objective Vitals Vital Signs Date Time Temp Pulse Resp B/P (MAP) Pulse Ox O2 Delivery O2 Flow Rate FiO2 04/30/25 13:00 98.4 60 20 103/66 (78) 94 98.4 04/28/25 16:49 Room Air* 0 21 Intake/Output Intake and Output 04/30/25 07:00 Intake Total 815 ml Balance 815 ml Intake Oral 665 ml IV Total 150 ml # Voids 11 General Appearance: Alert, Oriented X3, Cooperative Cardiovascular: Normal S1, Normal S2 Neuro: Strength at 5/5 X4 ext Medications Current Medications Medications Dose Ordered Sig/Moiéss Route Start Time Stop Time Status Last Admin Dose Admin Acetaminophen/ Hydrocodone Bitart 1 tab Q4HP PRN PO 04/28/25 11:30 04/28/25 22:03 1 TAB Ondansetron HCl 4 mg Q4HP PRN IV 04/28/25 11:30 04/30/25 05:30 4 MG Docusate Sodium 100 mg BIDPRN PRN PO 04/28/25 11:30 04/30/25 05:42 100 MG Enoxaparin Sodium 40 mg DAILY SC 04/29/25 10:00 04/30/25 09:48 40 MG Acetaminophen 650 mg Q6HP PRN PO 04/28/25 11:30 04/29/25 00:46 650 MG Morphine Sulfate 2 mg Q4HPRN PRN IV 04/28/25 11:45 04/29/25 10:40 2 MG Meropenem 50 ml @ 17 mls/hr Q8HR IV 04/28/25 22:00 04/30/25 13:11 17 MLS/HR Hydromorphone HCl 1 mg Q4HPRN PRN IV 04/29/25 22:00 Laboratory Results Laboratory Tests 04/29/25 05:45 Urinalysis Test 04/28/25 09:30 Urine Color Colorless (Yellow) Urine Clarity Turbid (Clear) H Urine pH 7.5 (5.0-9.0) Urine Specific [place] 1.016 (1.001-1.035) Urine Protein Normal (Negative) Urine Ketones Negative (Negative) Urine Blood Normal /uL (Negative) Urine Nitrite Negative (Negative) Urine Bilirubin Negative (Negative) Urine Urobilinogen Normal mg/dL (Negative) Urine Leukocyte Esterase 3+ /uL (Negative) Urine Glucose Normal mg/dL (Normal) Microbiology Microbiology Date/Time Source Procedure Growth Status 04/28/25 09:30 Voided Urine Urine Culture - Final Complete 04/28/25 07:55 Blood Blood Culture - Preliminary NO GROWTH AFTER 48 HOURS OF INCUBATION. Resulted Labs and/or images reviewed: Labs reviewed by me, Image(s) reviewed by me Assessment/Plan Assessment/Plan Pyelonephritis, acute, POA Complicated UTI, Dehydration flank pain 04/30/2025: pt is improving, one more day of IV abx possible d/c in AM Plan discussed with: Patient Date of Service: Apr 30, 2025 Billing Provider: LAVERN RCAWFORD DO Common Visit Codes: [id number] INP/OBS CARE(HIGH) LAVERN CRAWFORD DO Apr 30, 2025 14:05
[2025-04-30 17:00] VITALS: BP 103/69; PULSE 55; RESP 20; TEMP 98.3; O2SAT 96
[2025-04-30 21:00] VITALS: BP 113/69; PULSE 54; RESP 17; TEMP 96.3; O2SAT 96
[2025-05-01 01:00] VITALS: BP 101/66; PULSE 46; RESP 16; TEMP 97.8; O2SAT 95
[2025-05-01 04:52] VITALS: BP 101/70; PULSE 51; RESP 16; TEMP 96.6; O2SAT 99
[2025-05-01 09:00] VITALS: BP 114/72; PULSE 52; RESP 18; TEMP 97.8; O2SAT 95
[2025-05-01 13:00] VITALS: BP 104/70; PULSE 68; RESP 18; TEMP 98.3; O2SAT 96
[2025-05-01] MEDS ORDERED: LEVO500T91 PO (15:42)
[2025-05-01] MEDS ORDERED: BACL5TAB2 PO (15:42)
--- NOTE | 2025-05-01 15:43 | DVHDS2 ---
Discharge Summary Date of Admission Apr 28, 2025 at 11:19 Date of Discharge: May 01, 2025 Labs/Diagnostic Data: Laboratory Results Test 04/29/25 05:45 04/28/25 09:30 04/28/25 07:56 White Blood Count 3.4 10^3/uL (4.4-10.8) Red Blood Count 3.75 10^6/uL (4.0-5.20) Hemoglobin 12.2 g/dL (12.2-16.2) Hematocrit 35.8 % (36.0-46.0) Mean Corpuscular Volume 95.3 fL (80.0-100.0) Mean Corpuscular Hemoglobin 32.6 pg (28.0-32.0) Mean Corpuscular Hemoglobin Concent 34.2 g/dL (32.0-36.0) Red Cell Distribution Width 12.9 % (11.8-14.3) Platelet Count 135 10^3/uL (140-450) Mean Platelet Volume 8.5 fL (6.9-10.8) Neutrophils (%) (Auto) 43.7 % (37.0-80.0) Lymphocytes (%) (Auto) 45.8 % (10.0-50.0) Monocytes (%) (Auto) 8.2 % (0.0-12.0) Eosinophils (%) (Auto) 1.8 % (0.0-7.0) Basophils (%) (Auto) 0.5 % (0.0-2.0) Neutrophils # (Auto) 1.5 10 ^3/uL (1.6-8.6) Lymphocytes # (Auto) 1.6 10 ^3/uL (0.4-5.4) Monocytes # (Auto) 0.3 10 ^3/uL (0-1.3) Eosinophils # (Auto) 0.1 10 ^3/uL (0-0.8) Basophils # (Auto) 0 10 ^3/uL (0-0.2) Nucleated Red Blood Cells 0.2 % Sodium Level 143 mmol/L (136-145) Potassium Level 4.5 mmol/L (3.5-5.1) Chloride Level 106 mmol/L (98-107) Carbon Dioxide Level 30 mmol/L (20-31) Anion Gap 7 (5-15) Blood Urea Nitrogen 10 mg/dL (9-23) Creatinine 0.72 mg/dL (0.550-1.02) Glomerular Filtration Rate Calc 101 mL/min (>90) BUN/Creatinine Ratio 13.9 (10.0-20.0) Serum Glucose 82 mg/dL (74-106) Calcium Level 8.8 mg/dL (8.7-10.4) Total Bilirubin 0.4 mg/dL (0.2-1.0) Aspartate Amino Transferase (AST) 19 U/L (13-40) Alanine Aminotransferase (ALT) 20 U/L (7-40) Alkaline Phosphatase 38 U/L (46-116) Total Protein 5.8 g/dL (5.7-8.2) Albumin 3.5 g/dL (3.2-4.8) Urine Color Colorless (Yellow) Urine Clarity Turbid (Clear) Urine pH 7.5 (5.0-9.0) Urine Specific [place] 1.016 (1.001-1.035) Urine Protein Normal (Negative) Urine Ketones Negative (Negative) Urine Blood Normal /uL (Negative) Urine Nitrite Negative (Negative) Urine Bilirubin Negative (Negative) Urine Urobilinogen Normal mg/dL (Negative) Urine Leukocyte Esterase 3+ /uL (Negative) Urine Glucose Normal mg/dL (Normal) Lactic Acid Level 0.8 mmol/L (0.4-2.0) Other Laboratory Tests 04/29/25 05:45 Final Diagnosis/Problems List muscle spasm UTI? chronic bladde dysfunction? Discharge Disposition: Home Discharge Instruct/Medications Diet: Regular Activity: No Restrictions, As Tolerated Medications: levofloxacin baclofen Scheduled Levofloxacin Hemihydrate (Levofloxacin), 1 TAB PO DAILY Scheduled PRN Baclofen (Baclofen), 5 MG PO TIDP PRN Discharge Statement: "Patient was advised to return to the ER or call 911 if any headaches, dizziness, shortness of breath, chest pain, abdominal pain, bleeding, fevers, or worsening of medical condition. Patient was counseled about treatment plan, medications, possible side effects, patientverbalized understanding. All questions were answered to the best of my ability. This discharge took greater then 30 minutes in planning, reviewing documentation, counseling the patient, and discussing with other team members." ASSESSMENT ASSESSMENT Assessment muscle spasm UTI? chronic bladde dysfunction? Date of Service: May 01, 2025 Billing Provider: LORRAINE BUNN MD Common Visit Codes: [id number] DISCH DAY >30min LORRAINE BUNN MD May 01, 2025 15:43
[2025-05-01 15:48] VITALS: TEMP 36.8
[2025-05-01 17:00] VITALS: BP 117/75; PULSE 56; RESP 18; TEMP 98.5; O2SAT 95
== END 2025-05-01 16:55 | disposition home or self-care (01) | DRG 690 ==
LOC: ER 07:09 → EDBD 07:09 → OVERFLOW 11:19 → WEST WING 21:10
PROVIDERS: ADMIT Internal Medicine; ATTEND Internal Medicine
DX: N10 Acute pyelonephritis (principal); E86.0 Dehydration; N31.9 Neuromuscular dysfunction of bladder, unspecified; M62.838 Other muscle spasm; Z88.1 Allergy status to other antibiotic agents; Z88.5 Allergy status to narcotic agent; Z86.718 Personal history of other venous thrombosis and embolism; Z86.711 Personal history of pulmonary embolism
CPT/HCPCS: 36415; 71045; 74177; 80053; 81003; 83605; 85025; 87040; 87086; 93005; 99291; G0378; J2185; J2405

== ENCOUNTER 2025-05-05 17:54 | Inpatient (IN) | payer BC ==
[~2025-05-05] VITALS: Ht 180.3 cm; Wt 71.7 kg
[~2025-05-05 17:54] MED LIST: BACL5TAB2 PO; LEVO500T91 PO
[2025-05-05 18:40] LABS: Hematocrit 40.4 % (36.0-46.0); Hemoglobin 14.1 g/dL (12.2-16.2); Mean Corpuscular Hemoglobin 33.1 pg (28.0-32.0); Mean Corpuscular Volume 94.6 fL (80.0-100.0); Nucleated Red Blood Cells % 0.1 %
[2025-05-05 18:41] LABS: Chloride 101 mmol/L (98-107); Potassium 4.1 mmol/L (3.5-5.1); Sodium 139 mmol/L (136-145)
[2025-05-05 18:42] LABS: Anion Gap 8 (5-15); Calcium 9.5 mg/dL (8.7-10.4); Carbon Dioxide 30 mmol/L (20-31)
[2025-05-05 18:47] LABS: BUN/Creatinine Ratio 27.5 (10.0-20.0); Blood Urea Nitrogen 19 mg/dL (9-23); Glucose 91 mg/dL (74-106); Lipase 51 U/L (12-53)
[2025-05-05] MEDS: ONDANSETRON ODT 4 MG TAB PO ONE (18:51)
[2025-05-05] MEDS: HYDROmorphone HCL 2 MG/ML VL/or syr IV ONE (19:00)
--- NOTE | 2025-05-05 20:28 | DVH ---
Exam: CT CT AB PEL WITH IV CON ONLY History: Continued right-sided flank pain Comparison Study: CT CT AB PEL WITH IV CON ONLY on DOS: 04/28/25 TECHNIQUE: Multidetector CT of the abdomen and pelvis with IV contrast. Axial, coronal and sagittal m ultiplanar reformats were obtained from the axial data set by the technologist. Radiation Dose Information: CT Dose: CTDI volume is 7.99 mGy. Dose-length product is 3.92 mGy*cm FINDINGS: Bibasilar atelectasis. Partially visualized heart is unremarkable. Mild hepatosplenomegaly. Otherwise, liver, spleen, pancreas and adrenal glands are unremarkable. The gallbladder is unremarkable. Kidneys, ureters and urinary bladder are unremarkable. Intrauterine device is noted in place. Uterus is otherwise unremarkable. Stomach is unremarkable. Small bowel loops are unremarkable. Appendix is unremarkable. Large amount o f fecal material within the colon. No evidence of intraperitoneal free air or free fluid. No evidence of aortic aneurysm. Minimal atherosclerotic calcification of the aorta. No significant lymphadenopathy. Mild body wall edema. No evidence of acute osseous abnormalities. IMPRESSION: No evidence of acute abdominopelvic abnormalities. Constipation.
[2025-05-05] MEDS: IOHEXOL 300 MG/ML 100ML BOTTLE IJ ONE (21:16)
[2025-05-05 21:41] LABS: Urine Protein, UAD TRACE (Negative)
--- NOTE | 2025-05-05 22:41 | ED.PDOC ---
History of Present Illness HPI Comments This patient is a 50-year-old female who returns to the ED today for continued evaluation of flank and back pain concerns for the past two weeks. Patient was admitted to this hospital several days ago and diagnosed with possible pyelonephritis. Patient states that she had had to leave the facility because they would not sign her off for work note concerns. Patient returns today in substantial pain on bilateral flank region. Patient was mildly hypertensive on arrival. Chief Complaint: Flank Pain Time Seen by MD: 18:03 Reviewed Notes: Nurses Notes Allergies: Coded Allergies: Ciprofloxacin (Verified Allergy, Unknown, 04/28/25) Codeine (Verified Allergy, Unknown, 04/28/25) Home Meds Active Scripts Baclofen (Baclofen) 5 Mg Tab, 5 MG PO TIDP PRN for 3 Days, #9 TAB Prov:LORRAINE BUNN MD 05/01/25 Levofloxacin Hemihydrate (LEVOFLOXACIN) 500 Mg Tab, 1 TAB PO DAILY for 7 Days, #7 TAB Prov:LORRAINE BUNN MD 05/01/25 Information Source: Patient Mode of Arrival: Ambulatory Severity: Moderate Timing: Weeks Duration: Since onset Prehospital treatment: Pain Meds Past Medical History PAST MEDICAL HISTORY: Denies Past Medical History (Other): Recent hospitalization for flank pain/back pain concerns Surgical History: Denies all surgeries ANALYST MICROBIOLOGY LAB History: No Pertinent ANALYST MICROBIOLOGY LAB History Family History Family History: Reviewed,noncontributory to illness Social History Smoker: Non-Smoker Alcohol: Denies ETOH Use Drugs: Denies Drug Use Lives In: Home Constitutional: denies: chills, diaphoresis, fatigue, fever, malaise, sweats, weakness, others EENTM: denies: blurred vision, double vision, ear bleeding, ear discharge, ear drainage, ear pain, ear ringing, eye pain, eye redness, hearing loss, mouth pain, mouth swelling, nasal discharge, nose bleeding, nose congestion, nose pain, photophobia, tearing, throat pain, throat swelling, voice changes, others Respiratory: denies: cough, hemoptysis, orthopnea, SOB at rest, shortness of breath, SOB with excertion, stridor, wheezing, others Cardiovascular: denies: chest pain, dizzy spells, diaphoresis, Dyspnea on exertion, edema, irregular heart beat, left arm pain, lightheadedness, palpitations, PND, syncope, others Gastrointestinal: denies: abdomen distended, abdominal pain, blood streaked bowels, constipated, diarrhea, dysphagia, difficulty swallowing, hematemesis, melena, nausea, poor appetite, poor fluid intake, rectal bleeding, rectal pain, vomiting, others Genitourinary: reports: flank pain; denies: abnormal vagina bleeding, burning, dyspareunia, dysuria, frequency, hematuria, incontinence, pain, , vagina discharge, urgency, others Neurological: denies: dizziness, fainting, headache, left sided numbness, left sided weakness, numbness, paresthesia, pre-existing deficit, right sided numbness, right sided weakness, seizure, speech problems, tingling, tremors, weakness, others Musculoskeletal: reports: back pain; denies: gout, joint pain, joint swelling, muscle pain, muscle stiffness, neck pain, others Integumetry: denies: bruises, change in color, change in hair/nails, dryness, laceration, lesions, lumps, rash, wounds, others Allergic/Immunocompromised: denies: Difficulty Healing, Frequent Infections, Hives, Itching, others Hematologic/Lymphatic: denies: anemia, blood clots, easy bleeding, easy bruising, swollen glands, others Endocrine: denies: excessive hunger, excessive sweating, excessive thirst, excessive urination, flushing, intolerance to cold, intolerance to heat, unex plained weight gain, unexplained weight loss, others Psychiatric: denies: anxiety, bipolar disorder, depression, hopeless, panic disorder, schizophrenia, sleepless, suicidal, others Physical Exam General Appearance: Moderate Distress (Patient in his in significant distress due to back pain concerns.), Normal HEENT: Normal ENT Inspection, Pharynx Normal, TMs Normal Neck: Full Range of Motion, Non-Tender, Normal, Normal Inspection Respiratory: Chest Non-Tender, Lungs Clear, No Accessory Muscle Use, No Respiratory Distress, Normal Breath Sounds Cardiovascular: No Edema, No JVD, No Murmur, No Gallop, Normal Peripheral Pu lses, Regular Rate/Rhythm Breast Exam: Deferred Gastrointestinal: Other (Diffuse nonspecific flank, CVA and low back pain concerns throughout. No step-offs noted. No signs of trauma.) Genitalia: Deferred Pelvic: Deferred Rectal: Deferred Extremities: No calf tenderness, Normal inspection, Non-tender Neurologic: Alert Cerebellar Function: NOT DONE Reflexes: NOT DONE Skin: Dry, Normal Color, Warm Lymphatic: No Adenopathy Was a procedure done? Was a procedure done?: No Differential Dx Considerations may include: UTI, pyelonephritis, kidney stone, pancreatitis, hepatic steatosis, chronic back pain X-Ray, Labs, Meds, VS Vital Signs Date Time Temp Pulse Resp B/P (MAP) Pulse Ox O2 Delivery O2 Flow Rate FiO2 05/05/25 19:23 97.6 74 18 104/63 (77) 98 97.6 05/05/25 19:23 74 18 98 Room Air 05/05/25 19:00 71 16 104/63 05/05/25 17:56 98.3 84 17 123/102 98 98.3 Lab Test 05/05/25 21:09 05/05/25 19:10 05/05/25 18:14 Range/Units Urine Color Light-yellow Yellow Urine Clarity Clear Clear Urine pH 6.5 5.0-9.0 Urine Specific [place] > 1.050 H 1.001-1.035 Urine Protein Trace H Negative Urine Ketones Negative Negative Urine Blood Negative Negative /uL Urine Nitrite Negative Negative Urine Bilirubin Negative Negative Urine Urobilinogen Normal Negative mg/dL Urine Leukocyte Esterase Negative Negative /uL Urine RBC 5 0 - 4 /hpf Urine Microscopic WBC 7 H 0-5 /HPF Urine Squamous Epithelial Cells Few <5 /hpf Urine Bacteria None seen None Seen /hpf Urine Glucose Normal Normal mg/dL Troponin I High Sensitivity < 3 L < 3 L </=34 ng/L White Blood Count 7.1 # 4.4-10.8 10^3/uL Red Blood Count 4.28 4.0-5.20 10^6/uL Hemoglobin 14.1 # 12.2-16.2 g/dL Hematocrit 40.4 # 36.0-46.0 % Mean Corpuscular Volume 94.6 80.0-100.0 fL Mean Corpuscular Hemoglobin 33.1 H 28.0-32.0 pg Mean Corpuscular Hemoglobin Concent 35.0 32.0-36.0 g/dL Red Cell Distribution Width 12.8 11.8-14.3 % Platelet Count 186 140-450 10^3/uL Mean Platelet Volume 8.4 6.9-10.8 fL Neutrophils (%) (Auto) 62.2 37.0-80.0 % Lymphocytes (%) (Auto) 26.5 10.0-50.0 % Monocytes (%) (Auto) 10.2 0.0-12.0 % Eosinophils (%) (Auto) 0.7 0.0-7.0 % Basophils (%) (Auto) 0.4 0.0-2.0 % Neutrophils # (Auto) 4.5 1.6-8.6 10 ^3/uL Lymphocytes # (Auto) 1.9 0.4-5.4 10 ^3/uL Monocytes # (Auto) 0.7 0-1.3 10 ^3/uL Eosinophils # (Auto) 0 0-0.8 10 ^3/uL Basophils # (Auto) 0 0-0.2 10 ^3/uL Nucleated Red Blood Cells 0.1 % Sodium Level 139 136-145 mmol/L Potassium Level 4.1 3.5-5.1 mmol/L Chloride Level 101 98-107 mmol/L Carbon Dioxide Level 30 20-31 mmol/L Anion Gap 8 5-15 Blood Urea Nitrogen 19 9-23 mg/dL Creatinine 0.69 0.550-1.02 mg/dL Glomerular Filtration Rate Calc 104 >90 mL/min BUN/Creatinine Ratio 27.5 H 10.0-20.0 Serum Glucose 91 74-106 mg/dL Calcium Level 9.5 8.7-10.4 mg/dL Lipase 51 12-53 U/L Current Medications Medications (Trade) Dose Ordered Sig/Moisés Route Start Time Stop Time Status Last Admin Hydromorphone HCl (Dilaudid Injection) 0.5 mg ONCE ONCE IV 05/05/25 18:15 05/05/25 18:16 DC 05/05/25 19:00 Ondansetron HCl (Zofran Po) 4 mg ONCE ONCE PO 05/05/25 18:15 05/05/25 18:16 DC 05/05/25 18:51 X-Ray, Labs, Meds, VS Comment All studies performed the ED were evaluated by me personally. Serum studies were unremarkable for any systemic concerns as was urinalysis. CT of the abdomen and pelvis was unremarkable for any kidney stone formation or hydronephrosis. Some constipation was noted. Patient's pain can not be managed with passive drugs and has required Dilaudid. Patient will be admitted for intractable pain concerns and continued evaluation. Time of 1ST Reevaluation: :40 Reevaluation 1ST: Improved Consultation: PCP Patient Education/Counseling: Diagnosis, Treatment Family Education/Counseling: Diagnosis, Treatment SEPSIS Sepsis Screen Date sepsis recognized/suspect: May 05, 2025 Time Sepsis recognized/suspect: 1758 Recent Procedure: No On Antibiotic Therapy: No Respiratory Rate >20: No Heart Rate >90: No Temp<36 C (96.8 F) or >38.3 C: No SBP <90 or MAP <65 mmHG: No New Acute Mental Status Change: No Is the patient on CPAP, BIPAP,: No Physician Orders Troponin-I Hs (05/06/25 00:00) Troponin-I Hs (05/06/25 03:00) Troponin-I Hs (05/06/25 06:00) Ct Ab Pel With Iv Con Only (05/05/25 18:07) Heplock Iv (05/05/25 18:07) Urine Bacterial Culture (05/05/25 18:07) Electrocardigram (05/05/25 18:07) Vital Signs Date Time Temp Pulse Resp B/P (MAP) Pulse Ox O2 Delivery O2 Flow Rate FiO2 05/05/25 19:23 97.6 74 18 104/63 (77) 98 97.6 05/05/25 19:23 74 18 98 Room Air 05/05/25 19:00 71 16 104/63 05/05/25 17:56 98.3 84 17 123/102 98 98.3 Laboratory Tests Test 05/05/25 18:14 White Blood Count 7.1 10^3/uL (4.4-10.8) # Medications Medications Dose Ordered Sig/Moisés Route Start Time Stop Time Status Last Admin Dose Admin Hydromorphone HCl 0.5 mg ONCE ONCE IV 05/05/25 18:15 05/05/25 18:16 DC 05/05/25 19:00 Ondansetron HCl 4 mg ONCE ONCE PO 05/05/25 18:15 05/05/25 18:16 DC 05/05/25 18:51 Departure 1 Departure Time of Disposition: 22:40 Impression: Primary Impression: Intractable back pain Disposition: ADMITTED INPATIENT Condition: Fair Discharged With: Self Critical Care Note Critical Care Time?: No Stability Stability form required: No Heart Score Heart Score: Heart Score Response (Comments) Value History N/A 0 EKG N/A 0 Age N/A 0 Risk Factors N/A 0 Troponin N/A 0 Total 0 BELINDA FORD PAC May 05, 2025 22:41
[2025-05-05] MEDS: LACTULOSE 20Gm/30ML SOLN PO ONE (23:05)
[2025-05-05] MEDS: KETOROLAC TROMETH 60MG/2ML VIAL IM ONE (23:06)
--- NOTE | 2025-05-05 23:14 | DVHHPRES ---
History of Present Illness Resident Creating Document: NGHIA ALLEN RESIDENT History of Present Illness This is a 50-year-old female with past medical history of DVT, PE, presented to the ER with chief complain of left posterior flank pain. Pain is described as crushing, 10/10, worsening with standing up, radiating diffusely to her back. Patient was hospitalized last week in [facility] for similar complaint and she was treated for acute pyelonephritis. She was discharged home with levofloxacin, presented to the ER before finishing the antibiotic course due to increased pain in her right flank. Associated with chills and nausea. Denies history of kidney stones, fever. 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 Lives in house alone, full code, next to kin is father. Home medication: Levofloxacin Allergic history: Questionable Ciprofloxacin allergy. Allergic to codeine Patient was examined at bedside today. Patient is admitted for further evaluation and management. Review of Systems Review of Systems ROS: Constitutional: Denies weight loss, fever and chills. HEENT: Denies changes in vision and hearing. Respiratory: Denies shortness of breath and cough Cardiovascular: Denies chest discomfort or palpitations GI: Nausea. Denies abdominal pain, vomiting and diarrhea. : Right flank pain. Denies dysuria and urinary frequency. Musculoskeletal: Denies myalgias and joint pain Skin: Denies rash and pruritus. Neurological: Denies dizziness, headache, vision or hearing problems Allergies: Coded Allergies: Ciprofloxacin (Verified Allergy, Unknown, 04/28/25) Codeine (Verified Allergy, Unknown, 04/28/25) Exam Vital Signs Vital Signs Date Time Temp Pulse Resp B/P (MAP) Pulse Ox O2 Delivery O2 Flow Rate FiO2 05/05/25 23:09 98.1 70 16 116/74 (88) 95 98.1 05/05/25 19:23 Room Air Exam General: Patient alert and oriented in person, place and time. Patient following commands. HEENT: Normocephalic, atraumatic, moist mucous membranes Respiratory/pulmonary: Clear lungs bilaterally, vesicular murmurs present in almost all lung pete, no associated crackles or wheezes. Cardiovascular: Normal heart sounds S1 and S2 with no associated murmurs Abdomen: Epigastric tenderness on deep palpation. Tenderness in posterior left flank and lumbar area Extremities: There is no peripheral edema present at the lower extremities. Peripheral Pulses: 3+ Radial (R). 3+ Radial (L). 3+ Dorsalis pedis (R). 3+ Dorsalis pedis(L) Skin: No rashes or pruritus, there is no sacral edema present at this time. Neurological: Intact cranial nerves with no focal neurologic deficits Labs/Xrays Labs Test 05/05/25 21:09 05/05/25 19:10 05/05/25 18:14 Range/Units Urine Color Light-yellow Yellow Urine Clarity Clear Clear Urine pH 6.5 5.0-9.0 Urine Specific [place] > 1.050 H 1.001-1.035 Urine Protein Trace H Negative Urine Ketones Negative Negative Urine Blood Negative Negative /uL Urine Nitrite Negative Negative Urine Bilirubin Negative Negative Urine Urobilinogen Normal Negative mg/dL Urine Leukocyte Esterase Negative Negative /uL Urine RBC 5 0 - 4 /hpf Urine Microscopic WBC 7 H 0-5 /HPF Urine Squamous Epithelial Cells Few <5 /hpf Urine Bacteria None seen None Seen /hpf Urine Glucose Normal Normal mg/dL Troponin I High Sensitivity < 3 L </=34 ng/L White Blood Count 7.1 # 4.4-10.8 10^3/uL Red Blood Count 4.28 4.0-5.20 10^6/uL Hemoglobin 14.1 # 12.2-16.2 g/dL Hematocrit 40.4 # 36.0-46.0 % Mean Corpuscular Volume 94.6 80.0-100.0 fL Mean Corpuscular Hemoglobin 33.1 H 28.0-32.0 pg Mean Corpuscular Hemoglobin Concent 35.0 32.0-36.0 g/dL Red Cell Distribution Width 12.8 11.8-14.3 % Platelet Count 186 140-450 10^3/uL Mean Platelet Volume 8.4 6.9-10.8 fL Neutrophils (%) (Auto) 62.2 37.0-80.0 % Lymphocytes (%) (Auto) 26.5 10.0-50.0 % Monocytes (%) (Auto) 10.2 0.0-12.0 % Eosinophils (%) (Auto) 0.7 0.0-7.0 % Basophils (%) (Auto) 0.4 0.0-2.0 % Neutrophils # (Auto) 4.5 1.6-8.6 10 ^3/uL Lymphocytes # (Auto) 1.9 0.4-5.4 10 ^3/uL Monocytes # (Auto) 0.7 0-1.3 10 ^3/uL Eosinophils # (Auto) 0 0-0.8 10 ^3/uL Basophils # (Auto) 0 0-0.2 10 ^3/uL Nucleated Red Blood Cells 0.1 % Sodium Level 139 136-145 mmol/L Potassium Level 4.1 3.5-5.1 mmol/L Chloride Level 101 98-107 mmol/L Carbon Dioxide Level 30 20-31 mmol/L Anion Gap 8 5-15 Blood Urea Nitrogen 19 9-23 mg/dL Creatinine 0.69 0.550-1.02 mg/dL Glomerular Filtration Rate Calc 104 >90 mL/min BUN/Creatinine Ratio 27.5 H 10.0-20.0 Serum Glucose 91 74-106 mg/dL Calcium Level 9.5 8.7-10.4 mg/dL Lipase 51 12-53 U/L SEPSIS Sepsis Screen Date sepsis recognized/suspect: May 05, 2025 Time Sepsis recognized/suspect: 1758 Recent Procedure: No On Antibiotic Therapy: No Respiratory Rate >20: No Heart Rate >90: No Temp<36 C (96.8 F) or >38.3 C: No SBP <90 or MAP <65 mmHG: No New Acute Mental Status Change: No Is the patient on CPAP, BIPAP,: No Physician Orders Troponin-I Hs (05/06/25 00:00) Troponin-I Hs (05/06/25 03:00) Troponin-I Hs (05/06/25 06:00) Ct Ab Pel With Iv Con Only (05/05/25 18:07) Heplock Iv (05/05/25 18:07) Urine Bacterial Culture (05/05/25 18:07) Electrocardigram (05/05/25 18:07) Vital Signs Date Time Temp Pulse Resp B/P (MAP) Pulse Ox O2 Delivery O2 Flow Rate FiO2 05/05/25 23:09 98.1 70 16 116/74 (88) 95 98.1 05/05/25 23:02 70 20 116/74 05/05/25 19:23 97.6 74 18 104/63 (77) 98 97.6 05/05/25 19:23 74 18 98 Room Air 05/05/25 19:00 71 16 104/63 05/05/25 17:56 98.3 84 17 123/102 98 98.3 Laboratory Tests Test 05/05/25 18:14 White Blood Count 7.1 10^3/uL (4.4-10.8) # Medications Medications Dose Ordered Sig/Moisés Route Start Time Stop Time Status Last Admin Dose Admin Hydromorphone HCl 0.5 mg ONCE ONCE IV 05/05/25 18:15 05/05/25 18:16 DC 05/05/25 19:00 0.5 MG Ketorolac Tromethamine 30 mg ONCE ONCE IM 05/05/25 22:30 05/05/25 22:31 DC 05/05/25 23:06 30 MG Lactulose 30 ml ONCE ONCE PO 05/05/25 22:30 05/05/25 22:31 DC 05/05/25 23:05 30 ML Ondansetron HCl 4 mg ONCE ONCE PO 05/05/25 18:15 05/05/25 18:16 DC 05/05/25 18:51 4 MG Assessment/Plan Assessment/Plan Complicated UTI History of pyelonephritis IV ceftriaxone started Blood culture, urine culture ordered Gonorrhea, chlamydia, HIV, T pallidum test ordered Low salt diet, maintain hydration Repeat BMP Completed abdomen and pelvis CT which ruled out acute processes. If deemed necessary, consider completing MRI to rule out spinal stenosis. History of DVT, PE Monitor clinically Acute gastritis, possible Trial of GI cocktail with Maalox, pantoprazole, Carafate Constipation Oral lactulose ordered DIET: Clear liquid DVT PROPHYLAXIS: Lovenox GI PROPHYLAXIS: Protonix CODE STATUS: Goals of care discussed with patient at bedside for more than 35 minutes. Full code DISPOSITION: Med/surge Patient's status and plan discussed with the patient. Case discussed with Dr. Faustin Plan discussed with: Patient, Other (Nurses) Date of Service: May 05, 2025 Billing Provider: LEONILA LUCIO MD Common Visit Codes: [id number] INP/OBS CARE (HIGH) Secondary Visit Codes: [id number] CARE PLAN 30 MINUTES NGHIA ALLEN RESIDENT May 05, 2025 23:14 STACIE BABCOCK RESIDENT May 06, 2025 05:16
[2025-05-06] VITALS (8 sets, daily range): BP systolic 99–111; BP diastolic 54–65; PULSE 61–85; RESP 16–20; TEMP 97.6–98.2; O2SAT 96–98
[2025-05-06] MEDS ORDERED: MORPHINE SULFATE INJ 2 MG/ml SYRG IV PRN
[2025-05-06] MEDS ORDERED: ONDANSETRON HCL 4 MG/2 ML VIAL IV PRN
[2025-05-06] MEDS: ENOXAPARIN SOD 40 MG/0.4 ML SYRINGE SC SCH (00:32)
[2025-05-06] MEDS: MAALOX PLUS or MAALOX 30 ML PO ONE (02:41)
[2025-05-06] MEDS: SUCRALFATE 1 GM/10 ML ORAL SUSP GT ONE (02:41)
[2025-05-06] MEDS: PANTOPRAZOLE 40 MG TAB PO ONE (02:41)
[2025-05-06] MEDS: PANTOPRAZOLE 40 MG TAB PO SCH (05:54)
[2025-05-06] MEDS: SUCRALFATE 1 GM/10 ML ORAL SUSP GT SCH (05:54)
[2025-05-06] MEDS: ACETAMINOPHEN 325 MG TAB PO SCH (05:55)
[2025-05-06 07:29] LABS: INR 1.03 (0.9-1.15); Partial Thromboplastin Time 30.1 SEC (24.5-34.5); Prothrombin Time 10.9 sec (9.3-11.8)
[2025-05-06 07:33] LABS: Alanine Aminotransferase 27 U/L (7-40); Albumin 4.0 g/dL (3.2-4.8); Alkaline Phosphatase 53 U/L (46-116); Anion Gap 7 (5-15); BUN/Creatinine Ratio 24.6 (10.0-20.0); Bilirubin, Direct 0.2 mg/dL (<0.3); Blood Urea Nitrogen 17 mg/dL (9-23); Calcium 9.3 mg/dL (8.7-10.4); Carbon Dioxide 30 mmol/L (20-31); Chloride 102 mmol/L (98-107); Cholesterol 155 mg/dL (< 200); Glucose 91 mg/dL (74-106); HDL Cholesterol 47 mg/dL (40-59); Magnesium 2.2 mg/dL (1.6-2.6); Potassium 4.2 mmol/L (3.5-5.1); Sodium 139 mmol/L (136-145); Total Protein 6.5 g/dL (5.7-8.2); Triglycerides 61 mg/dL (< 150)
[2025-05-06 07:34] LABS: Bilirubin, Total 0.9 mg/dL (0.2-1.0)
[2025-05-06 07:40] LABS: Hematocrit 37.2 % (36.0-46.0); Hemoglobin 13.0 g/dL (12.2-16.2); Mean Corpuscular Hemoglobin 33.1 pg (28.0-32.0); Mean Corpuscular Volume 95.0 fL (80.0-100.0); Nucleated Red Blood Cells % 0.0 %
[2025-05-06] MEDS ORDERED: POLYETHYLENE GLYCOL 17 GM PWDR PO PRN (09:45)
[2025-05-06] MEDS: POLYETHYLENE GLYCOL 17 GM PWDR PO ONE (09:45)
[2025-05-06] MEDS: BISACODYL 5 MG EC TAB PO SCH (10:00)
[2025-05-06] MEDS ORDERED: LACTULOSE 20Gm/30ML SOLN PO SCH (10:00)
--- NOTE | 2025-05-06 18:31 | DVHPNRES ---
Progress Note Date Seen: May 06, 2025 Resident Creating Document: YOGI CHATMAN RESIDENT Medical Necessity Reason Pt with a Central, PICC or Fol: No Subjective Review of Systems This is a 50-year-old female with past medical history of DVT, PE, presented to the ER with chief complain of left posterior flank pain. Pain is described as crushing, 10/10, worsening with standing up, radiating diffusely to her back. Patient was hospitalized last week in [facility] for similar complaint and she was treated for acute pyelonephritis. She was discharged home with levofloxacin, presented to the ER before finishing the antibiotic course due to increased pain in her right flank. Associated with chills and nausea. Denies history of kidney stones, fever. 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 Lives in house alone, full code, next to kin is father. Home medication: Levofloxacin Allergic history: Questionable Ciprofloxacin allergy. Allergic to codeine Patient was examined at bedside today. The patient reports having flank pain. No new complaints. Objective vital signs Vital Sign Date Time Temp Pulse Resp B/P (MAP) Pulse Ox O2 Delivery O2 Flow Rate FiO2 05/06/25 17:23 98.0 65 20 106/54 (71) 96 98.0 05/06/25 08:00 Room Air* 0 21 Total Intake and Output 05/05/25 05/05/25 05/06/25 15:00 23:00 07:00 Intake Total 50 ml Output Total 0 ml Balance 50 ml medications Current Medications Medications Dose Ordered Sig/Moisés Route Start Time Stop Time Status Last Admin Dose Admin Ondansetron HCl 4 mg Q4HP PRN IV 05/06/25 00:00 Morphine Sulfate 2 mg Q4HPRN PRN IV 05/06/25 00:00 Hold Enoxaparin Sodium 40 mg DAILY SC 05/06/25 00:00 05/06/25 09:44 40 MG Ceftriaxone Sodium 50 ml @ 100 mls/hr DAILY@09 IV 05/07/25 09:00 Pantoprazole Sodium 40 mg DAILY@0600 PO 05/06/25 06:00 05/06/25 05:54 40 MG Sucralfate 1 gm BID@0600,2200 GT 05/06/25 06:00 05/06/25 05:54 1 GM Acetaminophen 650 mg Q6H PO 05/06/25 04:00 05/06/25 15:42 650 MG Polyethylene Glycol 17 gm DAILYPRN PRN PO 05/06/25 09:45 Bisacodyl 5 mg BID PO 05/06/25 10:00 Examination Exam General: Patient alert and oriented in person, place and time. Patient following commands. HEENT: Normocephalic, atraumatic, moist mucous membranes Respiratory/pulmonary: Clear lungs bilaterally, vesicular murmurs present in almost all lung pete, no associated crackles or wheezes. Cardiovascular: Normal heart sounds S1 and S2 with no associated murmurs Abdomen: Epigastric tenderness on deep palpation. Tenderness in posterior left flank and lumbar area Extremities: There is no peripheral edema present at the lower extremities. Peripheral Pulses: 3+ Radial (R). 3+ Radial (L). 3+ Dorsalis pedis (R). 3+ Dorsalis pedis(L) Skin: No rashes or pruritus, there is no sacral edema present at this time. Neurological: Intact cranial nerves with no focal neurologic deficits laboratory and microbiology Laboratory Tests 05/06/25 06:28 Test 05/06/25 06:28 Range/Units Serum Glucose 91 74-106 mg/dL Microbiology Date/Time Source Procedure Growth Status 05/06/25 07:20 Nose MRSA Screen - Final Complete Labs and/or images reviewed: Labs reviewed by me, Image(s) reviewed by me Problem List/Assessment/Plan Problem List/Assessment/Plan Complicated UTI History of pyelonephritis IV ceftriaxone started Blood culture, urine culture ordered Gonorrhea, chlamydia, HIV, T pallidum test ordered Low salt diet, maintain hydration STI panel ordered Completed abdomen and pelvis CT which ruled out acute processes. Spine MRI ordered. History of DVT, PE, not on anticoagulation Monitor clinically Acute gastritis, possible Trial of GI cocktail with Maalox, pantoprazole, Carafate Constipation Oral lactulose Bisacodyl Miralax DVT PROPHYLAXIS: Lovenox GI PROPHYLAXIS: Protonix CODE STATUS: Goals of care discussed with patient at bedside for more than 35 minutes. Full code DISPOSITION: Med/surge Patient's status and plan discussed with the patient. Plan discussed with: Patient, Other Date of Service: May 06, 2025 Billing Provider: DOMINIK PAULINO MD Common Visit Codes: [id number] INP/OBS CARE(HIGH) YOGI CHATMAN RESIDENT May 06, 2025 18:31 DOMINIK PAULINO MD May 08, 2025 09:00
[2025-05-06] MEDS: LIDOCAINE 5% TOPICAL PATCH TOP ONE (21:21)
[2025-05-07 01:00] VITALS: BP 105/66; PULSE 56; RESP 18; TEMP 98.2; O2SAT 97
[2025-05-07 05:00] VITALS: BP 108/59; PULSE 53; RESP 19; TEMP 98.2; O2SAT 98
[2025-05-07 06:01] LABS: Opiate Scree,Urine Neg (NEGATIVE)
[2025-05-07 06:02] LABS: Amphetamine Screen, Urine Neg (NEGATIVE); Barbiturate Scree,Urine Neg (NEGATIVE); Benzodiazephine Screen, Urine Neg (NEGATIVE); Cannabinoid Screen, Urine Neg (NEGATIVE); Cocaine Screen, Urine Neg (NEGATIVE); Phencyclidine Screen, Urine Neg (NEGATIVE)
[2025-05-07 07:45] LABS: Hematocrit 35.8 % (36.0-46.0); Hemoglobin 12.3 g/dL (12.2-16.2); Mean Corpuscular Hemoglobin 33.0 pg (28.0-32.0); Mean Corpuscular Volume 96.1 fL (80.0-100.0); Nucleated Red Blood Cells % 0.1 %
[2025-05-07 08:03] LABS: Anion Gap 6 (5-15); Carbon Dioxide 31 mmol/L (20-31); Chloride 104 mmol/L (98-107); Potassium 4.4 mmol/L (3.5-5.1); Sodium 141 mmol/L (136-145)
[2025-05-07 08:04] LABS: Calcium 8.8 mg/dL (8.7-10.4)
[2025-05-07 08:09] LABS: BUN/Creatinine Ratio 18.8 (10.0-20.0); Blood Urea Nitrogen 12 mg/dL (9-23); Glucose 90 mg/dL (74-106)
[2025-05-07 09:00] VITALS: BP 102/60; PULSE 60; RESP 20; TEMP 97.8; O2SAT 97
[2025-05-07] MEDS ORDERED: HYDROcodone-ACET 5/325MG TAB PO ONE (09:00)
[2025-05-07] MEDS ORDERED: CYCLOBENZAPRINE HCL 10 MG TAB PO PRN (09:00)
[2025-05-07] MEDS ORDERED: HYDROcodone-ACET 5/325MG TAB PO PRN (09:00)
[2025-05-07] MEDS: CYCLOBENZAPRINE HCL 10 MG TAB PO ONE (10:29)
--- NOTE | 2025-05-07 10:57 | DVH ---
MRI LUMBAR SPINE WITHOUT CONTRAST: HISTORY: back pain COMPARISON: None CONTRAST: Study was performed without contrast. TECHNIQUE: Routine, high-resolution, and multiplanar imaging was performed. FINDINGS: Multilevel disc degeneration. Alignment: No spondylolisthesis identified. Vertebrae: Vertebral body height is well maintained without evidence of a recent compression fracture . Conus: Conus medullaris terminates at the L1-L2 level. T12-L1: The disc configuration is normal. No spinal canal or neural foraminal stenosis. Facet arthros is. L1-2: Disc desiccation. No spinal canal or neural foraminal stenosis. The facet joints are normal. L2-3: Disc desiccation and 2 mm disc bulge. No spinal canal or neural foraminal stenosis. The facet j oints are normal. L3-4: Disc desiccation and 4 mm disc bulge with mid left foraminal annular fissure. The central can al is adequately patent . Mild bilateral foraminal stenosis. The facet joints are normal. L4-5: Disc desiccation and 3 mm disc bulge with left paracentral / foraminal annular fissure. The ce ntral canal remains adequately patent. There is [id number] bilateral neuroforaminal stenosis. L5-S1: Disc desiccation. 3-4 mm circumferential disc bulge with right paracentral annular fissure, an d mild facet arthropathy are seen at this level. The central canal is adequately patient. There is mi ld right without left neuroforaminal stenosis. IMPRESSION: 1. Multilevel mild degenerative changes from L3-L4 through L5-S1, as above. 2. No significant central canal stenosis at any lumbar level.
[2025-05-07 13:00] VITALS: BP 110/69; PULSE 64; RESP 18; TEMP 97.8; O2SAT 95
--- NOTE | 2025-05-07 14:56 | DVHDSRES ---
Discharge Summary Date of Admission Resident Creating Document: YOGI CHATMAN May 05, 2025 at 23:54 Date of Discharge: May 07, 2025 Admitting Diagnosis Musculoskeletal back pain Labs/Diagnostic Data: Laboratory Results Test 05/07/25 07:13 05/06/25 06:28 05/06/25 05:20 05/05/25 21:09 White Blood Count 4.5 10^3/uL (4.4-10.8) Red Blood Count 3.73 10^6/uL (4.0-5.20) Hemoglobin 12.3 g/dL (12.2-16.2) Hematocrit 35.8 % (36.0-46.0) Mean Corpuscular Volume 96.1 fL (80.0-100.0) Mean Corpuscular Hemoglobin 33.0 pg (28.0-32.0) Mean Corpuscular Hemoglobin Concent 34.4 g/dL (32.0-36.0) Red Cell Distribution Width 12.7 % (11.8-14.3) Platelet Count 143 10^3/uL (140-450) Mean Platelet Volume 8.3 fL (6.9-10.8) Neutrophils (%) (Auto) 53.1 % (37.0-80.0) Lymphocytes (%) (Auto) 32.6 % (10.0-50.0) Monocytes (%) (Auto) 11.3 % (0.0-12.0) Eosinophils (%) (Auto) 2.5 % (0.0-7.0) Basophils (%) (Auto) 0.5 % (0.0-2.0) Neutrophils # (Auto) 2.4 10 ^3/uL (1.6-8.6) Lymphocytes # (Auto) 1.5 10 ^3/uL (0.4-5.4) Monocytes # (Auto) 0.5 10 ^3/uL (0-1.3) Eosinophils # (Auto) 0.1 10 ^3/uL (0-0.8) Basophils # (Auto) 0 10 ^3/uL (0-0.2) Nucleated Red Blood Cells 0.1 % Sodium Level 141 mmol/L (136-145) Potassium Level 4.4 mmol/L (3.5-5.1) Chloride Level 104 mmol/L (98-107) Carbon Dioxide Level 31 mmol/L (20-31) Anion Gap 6 (5-15) Blood Urea Nitrogen 12 mg/dL (9-23) Creatinine 0.64 mg/dL (0.550-1.02) Glomerular Filtration Rate Calc 106 mL/min (>90) BUN/Creatinine Ratio 18.8 (10.0-20.0) Serum Glucose 90 mg/dL (74-106) Calcium Level 8.8 mg/dL (8.7-10.4) Prothrombin Time 10.9 sec (9.3-11.8) Prothrombin Time INR 1.03 (0.9-1.15) Activated Partial Thromboplast Time 30.1 SEC (24.5-34.5) Hemoglobin A1c 5.0 % A1C (<5.7) Lactic Acid Level 0.7 mmol/L (0.4-2.0) Phosphorus Level 4.7 mg/dL (2.4-5.1) Magnesium Level 2.2 mg/dL (1.6-2.6) Total Bilirubin 0.9 mg/dL (0.2-1.0) Direct Bilirubin 0.2 mg/dL (<0.3) Aspartate Amino Transferase (AST) 25 U/L (13-40) Alanine Aminotransferase (ALT) 27 U/L (7-40) Alkaline Phosphatase 53 U/L (46-116) C-Reactive Protein High Sensitivity 3.79 mg/dL (<1.0) Total Protein 6.5 g/dL (5.7-8.2) Albumin 4.0 g/dL (3.2-4.8) Triglycerides Level 61 mg/dL (< 150) Cholesterol Level 155 mg/dL (< 200) LDL Cholesterol 104 mg/dL (< 100) HDL Cholesterol 47 mg/dL (40-59) Vitamin B12 Level 307 pg/mL (211-911) Vitamin D 25-Hydroxy 82.3 ng/mL (30.0-100) Thyroid Stimulating Hormone (TSH) 1.93 uIU/mL (0.55-4.78) Treponema pallidum Antibody Non-reactive (Negative) HIV (1&2) Antibody Negative (Negative) Urine Test Negative (Negative) Urine Opiates Screen Neg (NEGATIVE) Urine Fentanyl Screen Neg (NEGATIVE) Urine Barbiturates Screen Neg (NEGATIVE) Urine Phencyclidine Screen Neg (NEGATIVE) Urine Amphetamines Screen Neg (NEGATIVE) Urine Benzodiazepines Screen Neg (NEGATIVE) Urine Cocaine Screen Neg (NEGATIVE) Urine Cannabinoids Screen Neg (NEGATIVE) Urine Color Light-yellow (Yellow) Urine Clarity Clear (Clear) Urine pH 6.5 (5.0-9.0) Urine Specific [place] > 1.050 (1.001-1.035) Urine Protein Trace (Negative) Urine Ketones Negative (Negative) Urine Blood Negative /uL (Negative) Urine Nitrite Negative (Negative) Urine Bilirubin Negative (Negative) Urine Urobilinogen Normal mg/dL (Negative) Urine Leukocyte Esterase Negative /uL (Negative) Urine RBC 5 /hpf (0 - 4) Urine Microscopic WBC 7 /HPF (0-5) Urine Squamous Epithelial Cells Few /hpf (<5) Urine Bacteria None seen /hpf (None Seen) Urine Glucose Normal mg/dL (Normal) Test 05/05/25 19:10 05/05/25 18:14 Troponin I High Sensitivity < 3 ng/L (</=34) Lipase 51 U/L (12-53) Other Laboratory Tests 05/07/25 07:13 Brief Hx & Hospital Course: This is a 50-year-old female with past medical history of DVT, PE, presented to the ER with chief complain of left posterior flank pain. Pain is described as crushing, 10/10, worsening with standing up, radiating diffusely to her back. Patient was hospitalized last week in [facility] for similar complaint and she was treated for acute pyelonephritis. She was discharged home with levofloxacin, presented to the ER before finishing the antibiotic course due to increased pain in her right flank. Associated with chills and nausea. Denies history of kidney stones, fever. 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 Lives in house alone, full code, next to kin is father. Home medication: Levofloxacin Allergic history: Questionable Ciprofloxacin allergy. Allergic to codeine On admission, given her previous history of pyelonephritis, her flank pain was attributed to complicated UTI was treated with ceftriaxone. However urinalysis was negative for any UTI. Blood and urine culture was sent. STI panel was done, chlamydia and HIV 1 and 2 serology came back negative, rest of the STI serology pending. Abdomen pelvis CT excluded any acute process. Based on further evaluation, her flank pain was due to musculoskeletal origin. Spine MRI revealed mild degenerative lumbar disc changes L3-L4 through L5-S1. No significant central canal stenosis at any lumbar level was noted. Constipation was managed with laxatives. On discharge, the patient was sent home with the pain medications, was advised to follow up with PCP. The patient verbalized understanding of the discharge plan. Exam General: Patient alert and oriented in person, place and time. Patient following commands. HEENT: Normocephalic, atraumatic, moist mucous membranes Respiratory/pulmonary: Clear lungs bilaterally, vesicular murmurs present in almost all lung pete, no associated crackles or wheezes. Cardiovascular: Normal heart sounds S1 and S2 with no associated murmurs Abdomen: Epigastric tenderness on deep palpation. Tenderness in posterior left flank and lumbar area Extremities: There is no peripheral edema present at the lower extremities. Peripheral Pulses: 3+ Radial (R). 3+ Radial (L). 3+ Dorsalis pedis (R). 3+ Dorsalis pedis(L) Skin: No rashes or pruritus, there is no sacral edema present at this time. Neurological: Intact cranial nerves with no focal neurologic deficits Operations or Procedures PATIENT: RENATA VARGAS ACCT: [id number] UNIT: [id number] : 1975 LOC: [place] ROOM / BED: [facility] / AGE / SEX: 50 / F ADM STATUS: ADM IN SERVICE [id number] ORDERING PHYSICIAN: MARJORIE CHOWDARY RESIDENT PROCEDURE(s): MSL - LUMBAR SPINE WO CONTRAST REASON: back pain ORDER NUMBER(s): [id number], ACCESSION NUMBER(s): [id number] MRI LUMBAR SPINE WITHOUT CONTRAST: HISTORY: back pain COMPARISON: None CONTRAST: Study was performed without contrast. TECHNIQUE: Routine, high-resolution, and multiplanar imaging was performed. FINDINGS: Multilevel disc degeneration. Alignment: No spondylolisthesis identified. Vertebrae: Vertebral body height is well maintained without evidence of a recent compression fracture. Conus: Conus medullaris terminates at the L1-L2 level. T12-L1: The disc configuration is normal. No spinal canal or neural foraminal stenosis. Facet arthrosis. L1-2: Disc desiccation. No spinal canal or neural foraminal stenosis. The facet joints are normal. L2-3: Disc desiccation and 2 mm disc bulge. No spinal canal or neural foraminal stenosis. The facet joints are normal. L3-4: Disc desiccation and 4 mm disc bulge with mid left foraminal annular fissure. The central canal is adequately patent . Mild bilateral foraminal stenosis. The facet joints are normal. L4-5: Disc desiccation and 3 mm disc bulge with left paracentral / foraminal annular fissure. The central canal remains adequately patent. There is [id number] bilateral neuroforaminal stenosis. L5-S1: Disc desiccation. 3-4 mm circumferential disc bulge with right paracentral annular fissure, and mild facet arthropathy are seen at this level. The central canal is adequately patient. There is mild right without left neuroforaminal stenosis. IMPRESSION: 1. Multilevel mild degenerative changes from L3-L4 through L5-S1, as above. 2. No significant central canal stenosis at any lumbar level. PATIENT: RENATA VARGAS ACCT: [id number] UNIT: [id number] : 1975 LOC: ER ROOM / BED: / AGE / SEX: 50 / F ADM STATUS: REG ER SERVICE 180 ORDERING PHYSICIAN: BELINDA FORD PAC PROCEDURE(s): ABPLIV - CT AB PEL WITH IV CON ONLY REASON: Continued right-sided flank pain ORDER NUMBER(s): [id number], ACCESSION NUMBER(s): [id number] Exam: CT CT AB PEL WITH IV CON ONLY History: Continued right-sided flank pain Comparison Study: CT CT AB PEL WITH IV CON ONLY on DOS: 04/28/25 TECHNIQUE: Multidetector CT of the abdomen and pelvis with IV contrast. Axial, coronal and sagittal multiplanar reformats were obtained from the axial data set by the technologist. Radiation Dose Information: CT Dose: CTDI volume is 7.99 mGy. Dose-length product is 3.92 mGy*cm FINDINGS: Bibasilar atelectasis. Partially visualized heart is unremarkable. Mild hepatosplenomegaly. Otherwise, liver, spleen, pancreas and adrenal glands are unremarkable. The gallbladder is unremarkable. Kidneys, ureters and urinary bladder are unremarkable. Intrauterine device is noted in place. Uterus is otherwise unremarkable. Stomach is unremarkable. Small bowel loops are unremarkable. Appendix is unremarkable. Large amount of fecal material within the colon. No evidence of intraperitoneal free air or free fluid. No evidence of aortic aneurysm. Minimal atherosclerotic calcification of the aorta. No significant lymphadenopathy. Mild body wall edema. No evidence of acute osseous abnormalities. IMPRESSION: No evidence of acute abdominopelvic abnormalities. 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 Medications: As per EMR Scheduled Cyclobenzaprine Hcl (Cyclobenzaprine Hcl), 1 TAB PO TID Scheduled PRN Oxycodone W/ Acetaminophen (Percocet 5/325MG), 1 TAB PO QID PRN Polyethylene Glycol (Miralax), 17 GM PO DAILY PRN Senna (Senna Laxative), 8.6 MG PO DAILY PRN Discontinued Medications Baclofen (Baclofen), 5 MG PO TIDP PRN Levofloxacin Hemihydrate (Levofloxacin), 1 TAB PO DAILY Discharge Statement: "Patient was advised to return to the ER or call 911 if any headaches, dizziness, shortness of breath, chest pain, abdominal pain, bleeding, fevers, or worsening of medical condition. Patient was counseled about treatment plan, medications, possible side effects, patientverbalized understanding. All questions were answered to the best of my ability. 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
[2025-05-07] MEDS ORDERED: CYCL-837 PO (15:10)
[2025-05-07] MEDS ORDERED: SENN8.6T26 PO (15:33)
[2025-05-07] MEDS ORDERED: POLY33505 PO (15:33)
[2025-05-07 16:38] VITALS: BP 132/82; PULSE 70; RESP 18; TEMP 98; O2SAT 94
[2025-05-07 17:00] VITALS: BP 108/64; PULSE 62; RESP 20; TEMP 98.4; O2SAT 97
[2025-05-07] MEDS ORDERED: PERCOT PO (18:35)
[2025-05-08 16:07] LABS: Chlamydia Trachomatis, NAA Negative (Negative); Neisseria gonorrhoeae, NAA Negative (Negative)
== END 2025-05-07 16:55 | disposition home or self-care (01) | DRG 392 ==
LOC: ER 17:54 → OVERFLOW 23:54 → WEST WING 05-06 01:38
PROVIDERS: ADMIT Internal Medicine; ATTEND Internal Medicine
DX: R10.A1 Flank pain, right side (principal); N39.0 Urinary tract infection, site not specified; K59.00 Constipation, unspecified; M51.369 Other intervertebral disc degeneration, lumbar region without mention of lumbar back pain or lower extremity pain; K29.00 Acute gastritis without bleeding; Z88.1 Allergy status to other antibiotic agents; Z88.5 Allergy status to narcotic agent; Z86.718 Personal history of other venous thrombosis and embolism; Z80.1 Family history of malignant neoplasm of trachea, bronchus and lung
CPT/HCPCS: 36415; 72148; 74177; 80048; 80053; 80061; 80076; 80307; 81001; 81025; 82306; 82607; 83036; 83605; 83690; 83735; 84100; 84443; 84484; 85025; 85610; 85730; 86141; 86703; 86780; 87081; 87086; 96372; 96374; G0378; J1885; Q0162

== ENCOUNTER 2025-07-18 22:15 | Emergency (ER) | payer BC ==
[~2025-07-18] VITALS: Ht 180.3 cm; Wt 68.2 kg
[~2025-07-18 22:15] MED LIST changes: -BACL5TAB2 PO; +CYCL-837 PO; -LEVO500T91 PO; +PERCOT PO; +POLY33505 PO; +SENN8.6T26 PO
--- NOTE | 2025-07-18 22:55 | ECG ---
[facility] Test Date: 2025-07-18 Test Time: 22:26:03 Pat Name: RENATA VARGAS Department: [facility] ED Patient ID: [id number] Room: Gender: F Maintenance Operator: : 1975 Requested By: REY NEGRETE Order Number: [id number] Reading MD: Measurements Intervals [place] Rate: 72 P: 80 [place]: 145 QRS: 82 QRSD: 91 T: 70 QT: 411 QTc: 450 Interpretive Statements Sinus rhythm Please click the below link to view image of tracing.
[2025-07-18] MEDS: SODIUM CHLORIDE 0.9% 1,000 ML IVB ONE (23:13)
[2025-07-18] MEDS: METOCLOPRAMIDE HCL 5MG/ml INJ 2ml VIAL IV ONE (23:14)
[2025-07-18 23:19] LABS: Hematocrit 44.4 % (36.0-46.0); Hemoglobin 15.3 g/dL (12.2-16.2); Mean Corpuscular Hemoglobin 32.7 pg (28.0-32.0); Mean Corpuscular Volume 94.6 fL (80.0-100.0); Nucleated Red Blood Cells % 0.1 %
--- NOTE | 2025-07-18 23:22 | ED.PDOC ---
History of Present Illness HPI Comments 50 y/o F is BIBA from private residence for c/c of multiple episode of nausea and vomiting. Patient reports on nonstop vomiting since 0200, this morning. Associated chills, poor appetite and fluid intake, and excessive thirst sensation. Denial of any excessive or burning with urination, abdominal pain, bloody or bilious vomitus, or further acute symptoms. Chief Complaint: Nausea/Vomiting Time Seen by MD: 22:30 Reviewed Notes: Nurses Notes, Tire Spotter Notes, Medications, Allergies Allergies: Coded Allergies: Ciprofloxacin (Verified Allergy, Unknown, 04/28/25) Codeine (Verified Allergy, Unknown, 04/28/25) Home Meds Active Scripts Famotidine (PEPCID TABLET) 20 Mg Tb, 1 TAB PO BID PRN, #60 TAB 5 Refills Prov:REY NEGRETE MD 07/19/25 Ondansetron HCl (Ondansetron Hydrochloride) 8 Mg Tab, 8 MG PO Q6HP PRN, #60 TAB Prov:REY NEGRETE MD 07/19/25 Oxycodone W/ Acetaminophen (Percocet 5/325MG) 1 Tab Tb, 1 TAB PO QID PRN, #20 TAB Prov:DOMINIK PAULINO MD 05/07/25 Senna (Senna Laxative) 8.6 Mg Tab, 8.6 MG PO DAILY PRN for 14 Days, #14 TAB 0 Refills Prov:MECHE JAMES 05/07/25 Polyethylene Glycol (Miralax) 17 Gm/Scoop Pow, 17 GM PO DAILY PRN for 14 Days, #14 POW 0 Refills Prov:MECHE JAMES 05/07/25 Cyclobenzaprine Hcl (Cyclobenzaprine Hcl) 5 Mg Tab, 1 TAB PO TID for 14 Days, #42 TAB 0 Refills Prov:MECHE JAMES 05/07/25 Information Source: Patient, Emergency Med Personnel Mode of Arrival: EMS Severity: Moderate Timing: Hours Duration: Since onset Prehospital treatment: 12 Lead EKG, Accucheck, Demand Generation Manager Past Medical History PAST MEDICAL HISTORY: Denies Surgical History: Denies all surgeries VP EMERGING MEDIA History: No Pertinent VP EMERGING MEDIA History Family History Family History: Reviewed,noncontributory to illness Social History Smoker: Non-Smoker Alcohol: Denies ETOH Use Drugs: Denies Drug Use Lives In: Home All Other Systems: Reviewed and Negative (As per HPI) Physical Exam General Appearance: Mild Distress, Normal HEENT: Normal ENT Inspection, Pharynx Normal, TMs Normal Neck: Full Range of Motion, Non-Tender, Normal, Normal Inspection Respiratory: Chest Non-Tender, Lungs Clear, No Accessory Muscle Use, No Re spiratory Distress, Normal Breath Sounds Cardiovascular: No Edema, No JVD, No Murmur, No Gallop, Normal Peripheral Pulses, Regular Rate/Rhythm Breast Exam: Deferred Gastrointestinal: No Organomegaly, Non Tender, No Pulsatile Mass, Normal Bowel Sounds, Soft Genitalia: Deferred Pelvic: Deferred Rectal: Deferred Extremities: No calf tenderness, Normal capillary refill, Normal inspection, Normal range of motion, Non-tender, No pedal edema Musculoskeletal : Apperance: Normal Neurologic: Alert, porter luggage II-XII nml as Tested, No Motor Deficits, Normal Affect, Normal Mood, No Sensory Deficits Cerebellar Function: Normal Reflexes: Normal Skin: Dry, Normal Color, Warm Lymphatic: No Adenopathy Was a procedure done? Was a procedure done?: No EKG EKG : Pulse Rate (adult): 72 [place]: Normal Cardiac Rhythm: NSR Block: None Hypertrophy: None ST: Normal Differential Dx Considerations may include: gastritis, gastroenteritis, GERD, PUD, dehydration, malnutrition, electrolyte imbalance, UTI, among others X-Ray, Labs, Meds, VS Vital Signs Date Time Temp Pulse Resp B/P (MAP) Pulse Ox O2 Delivery O2 Flow Rate FiO2 07/19/25 02:00 97.8 74 18 111/62 (78) 98 97.8 07/19/25 02:00 Room Air* 0 21 07/18/25 23:23 72 07/18/25 23:13 97.8 78 16 98/59 (72) 100 97.8 07/18/25 22:26 72 07/18/25 22:15 97.9 65 18 117/72 96 97.9 Lab Test 07/19/25 00:19 07/18/25 23:11 Range/Units Troponin I High Sensitivity 4 3 L </=34 ng/L White Blood Count 8.0 4.4-10.8 10^3/uL Red Blood Count 4.69 4.0-5.20 10^6/uL Hemoglobin 15.3 12.2-16.2 g/dL Hematocrit 44.4 36.0-46.0 % Mean Corpuscular Volume 94.6 80.0-100.0 fL Mean Corpuscular Hemoglobin 32.7 H 28.0-32.0 pg Mean Corpuscular Hemoglobin Concent 34.5 32.0-36.0 g/dL Red Cell Distribution Width 13.2 11.8-14.3 % Platelet Count 183 140-450 10^3/uL Mean Platelet Volume 7.6 6.9-10.8 fL Neutrophils (%) (Auto) 80.4 H 37.0-80.0 % Lymphocytes (%) (Auto) 14.2 10.0-50.0 % Monocytes (%) (Auto) 4.9 0.0-12.0 % Eosinophils (%) (Auto) 0.2 0.0-7.0 % Basophils (%) (Auto) 0.3 0.0-2.0 % Neutrophils # (Auto) 6.4 1.6-8.6 10 ^3/uL Lymphocytes # (Auto) 1.1 0.4-5.4 10 ^3/uL Monocytes # (Auto) 0.4 0-1.3 10 ^3/uL Eosinophils # (Auto) 0 0-0.8 10 ^3/uL Basophils # (Auto) 0 0-0.2 10 ^3/uL Nucleated Red Blood Cells 0.1 % Sodium Level 141 136-145 mmol/L Potassium Level 3.7 3.5-5.1 mmol/L Chloride Level 106 98-107 mmol/L Carbon Dioxide Level 26 20-31 mmol/L Anion Gap 9 5-15 Blood Urea Nitrogen 14 9-23 mg/dL Creatinine 0.74 0.550-1.02 mg/dL Glomerular Filtration Rate Calc 97 >90 mL/min BUN/Creatinine Ratio 18.9 10.0-20.0 Serum Glucose 98 74-106 mg/dL Calcium Level 9.3 8.7-10.4 mg/dL Magnesium Level 2.0 1.6-2.6 mg/dL Total Bilirubin 0.8 0.2-1.0 mg/dL Aspartate Amino Transferase (AST) 28 13-40 U/L Alanine Aminotransferase (ALT) 28 7-40 U/L Alkaline Phosphatase 63 46-116 U/L Total Protein 7.1 5.7-8.2 g/dL Albumin 4.2 3.2-4.8 g/dL Current Medications Medications (Trade) Dose Ordered Sig/Moisés Route Start Time Stop Time Status Last Admin Metoclopramide HCl (Reglan Injection) 10 mg ONCE ONCE IV 07/18/25 23:00 07/18/25 23:01 DC 07/18/25 23:14 Sodium Chloride 1,000 ml @ 1,000 mls/hr Q1H ONCE IVB 07/18/25 23:00 07/18/25 23:59 DC 07/18/25 23:13 Time of 1ST Reevaluation: 23:10 Reevaluation 1ST: Unchanged Patient Education/Counseling: Diagnosis, Treatment Family Education/Counseling: No Family Present SEPSIS Sepsis Screen Date sepsis recognized/suspect: Jul 18, 2025 Time Sepsis recognized/suspect: 2214 Recent Procedure: No On Antibiotic Therapy: No Respiratory Rate >20: No Heart Rate >90: No Temp<36 C (96.8 F) or >38.3 C: No SBP <90 or MAP <65 mmHG: No New Acute Mental Status Change: No Is the patient on CPAP, BIPAP,: No Physician Orders Urinalysis (07/18/25 22:55) Vital Signs Date Time Temp Pulse Resp B/P (MAP) Pulse Ox O2 Delivery O2 Flow Rate FiO2 07/19/25 02:00 97.8 74 18 111/62 (78) 98 97.8 07/19/25 02:00 Room Air* 0 21 07/18/25 23:23 72 07/18/25 23:13 97.8 78 16 98/59 (72) 100 97.8 07/18/25 22:26 72 07/18/25 22:15 97.9 65 18 117/72 96 97.9 Laboratory Tests Test 07/18/25 23:11 White Blood Count 8.0 10^3/uL (4.4-10.8) Medications Medications Dose Ordered Sig/Moisés Route Start Time Stop Time Status Last Admin Dose Admin Metoclopramide HCl 10 mg ONCE ONCE IV 07/18/25 23:00 07/18/25 23:01 DC 07/18/25 23:14 Sodium Chloride 1,000 ml @ 1,000 mls/hr Q1H ONCE IVB 07/18/25 23:00 07/18/25 23:59 DC 07/18/25 23:13 Departure 1 Departure Time of Disposition: 01:00 Impression: Primary Impression: Dehydration Additional Impression: Nausea and vomiting Disposition: HOME / SELF CARE / HOMELESS Condition: Stable e-Prescriptions Famotidine (PEPCID TABLET) 20 Mg Tb 1 TAB PO BID PRN, #60 TAB 5 Refills Prov: REY NEGRETE MD 07/19/25 Ondansetron HCl (Ondansetron Hydrochloride) 8 Mg Tab 8 MG PO Q6HP PRN, #60 TAB Prov: REY NEGRETE MD 07/19/25 Discharged With: Self Critical Care Note Critical Care Time?: No Stability Stability form required: No Heart Score Heart Score: Heart Score Response (Comments) Value History N/A 0 EKG N/A 0 Age N/A 0 Risk Factors N/A 0 Troponin N/A 0 Total 0 I personally scribed for REY NEGRETE MD ([email or web address]) on 07/18/25 at 23:22. Electronically submitted by Gurmeet Rojas ([email or web address]). I personally scribed for REY NEGRETE MD ([email or web address]) on 07/18/25 at 23:23. Electronically submitted by Gurmeet Rojas ([email or web address]). REY NEGRETE MD Jul 18, 2025 23:22
[2025-07-18 23:34] LABS: Alanine Aminotransferase 28 U/L (7-40); Albumin 4.2 g/dL (3.2-4.8); Alkaline Phosphatase 63 U/L (46-116); Anion Gap 9 (5-15); BUN/Creatinine Ratio 18.9 (10.0-20.0); Blood Urea Nitrogen 14 mg/dL (9-23); Calcium 9.3 mg/dL (8.7-10.4); Carbon Dioxide 26 mmol/L (20-31); Chloride 106 mmol/L (98-107); Glucose 98 mg/dL (74-106); Magnesium 2.0 mg/dL (1.6-2.6); Potassium 3.7 mmol/L (3.5-5.1); Sodium 141 mmol/L (136-145); Total Protein 7.1 g/dL (5.7-8.2)
[2025-07-18 23:35] LABS: Bilirubin, Total 0.8 mg/dL (0.2-1.0)
[2025-07-19] MEDS ORDERED: ONDA-180 PO (01:17)
[2025-07-19] MEDS ORDERED: FAMO20TA10 PO (01:18)
[2025-07-19 02:00] VITALS: BP 111/62; PULSE 74; RESP 18; TEMP 97.8; O2SAT 98
== END 2025-07-19 02:09 | disposition home or self-care (01) ==
LOC: ER 22:15 → EDBD 22:15 → ER 07-19 02:09
DX: E86.0 Dehydration (principal); R11.2 Nausea with vomiting, unspecified; Z88.1 Allergy status to other antibiotic agents; Z88.5 Allergy status to narcotic agent; Z79.899 Other long term (current) drug therapy
CPT/HCPCS: 36415; 80053; 83735; 84484; 85025; 93005; 96361; 96374; 99285; J2765; J7030